=== PATIENT | female | born 1970 | race Two or more races ===

== ENCOUNTER → 2020-09-06 11:25 | Outpatient (BNVA) | payer OTHER, SELFPAY | PROVIDERS: PCP Internal Medicine; Visit Provider Surgery | DX: K64.4 Residual hemorrhoidal skin tags (principal); K64.8 Other hemorrhoids | CPT/HCPCS: 46600; 99202 ==

== ENCOUNTER 2020-10-06 08:28 | Day surgery (SDC) | payer OTHER, SELFPAY ==
[2020-09-29 15:40] VITALS: BMI 29.0
--- NOTE | 2020-10-05 11:49 | P.CONAN_ITS ---
Documented by User: Jennifer Meng 10/05/20 11:50 HPI - Anesthesia Eval Consult details Narrative: 50yo F for Hemorrhoidectomy,EUA PMFSH Past Medical History Medical History Anxiety Depression GERD (gastroesophageal reflux disease) Hypertension Internal and external hemorrhoids without complication Family History Family History Paternal Aunt History of breast cancer Maternal Aunt History of breast cancer Surgical History Surgical History History of endometrial ablation History of esophagogastroduodenoscopy (EGD) Hx of cholecystectomy Social History Social History Alcohol intake: current Alcohol intake frequency: holidays/special occasions only Smoking Status: Never smoker Use of substances other than those prescribed or required for medical reasons: No Have you been hit, kicked, punched, or otherwise hurt by someone within the past year? If so, by whom?: No Advance Directives: No Advance Directives Information Provided: No Advance Directives on File: No Recently lost weight without trying: No Meds Allergies Allergy/AdvReac Type Severity Reaction Status Date / Time seasonal Allergies Allergy Wheezing Uncoded 09/29/20 16:29 Home Medications Medication Instructions Recorded Confirmed Type albuterol sulfate 90 mcg/actuation 1 puff INHALATION Q4-6H PRN 09/06/20 09/29/20 History aerosol inhaler chlorthalidone 25 mg tablet 25 mg PO DAILY 09/06/20 09/29/20 History fluticasone propionate 50 2 spray INTRANASAL DAILY 09/06/20 09/29/20 History mcg/actuation nasal spray,suspension hydroxyzine pamoate 25 mg capsule 25 mg PO BID PRN 09/06/20 09/29/20 History ketotifen fumarate 0.025 % (0.035 1 drp OPHTHALMIC (EYE) ONCE PRN ml 09/06/20 09/29/20 History %) eye drops loratadine 10 mg tablet 10 mg PO DAILY 09/06/20 09/29/20 History lorazepam 0.5 mg tablet 0.5 mg PO DAILY PRN 09/06/20 09/29/20 History losartan 25 mg tablet 25 mg PO DAILY 09/06/20 09/29/20 History prazosin 1 mg capsule 1 mg PO DAILY 09/06/20 09/29/20 History sertraline 100 mg tablet 150 mg PO QAM 09/06/20 09/29/20 History trazodone 50 mg tablet 25 mg PO BEDTIME PRN 09/06/20 09/29/20 History Exam Exam Date and Time: October 05, 2020 1149 Height,Weight and Vital Signs: Height 5 ft 4 in Weight 76.657 kg Pertinent Lab Results Pertinent Lab Results: Laboratory Tests 04/08/20 04/08/20 09:58 09:58 WBC 7.0 Hgb 13.0 Hct 38.8 Plt Count 273 Sodium 140 Potassium 3.8 Chloride 104 BUN 9 Creatinine 0.80 Assessment and Plan Assessment Anesthesia Assessment: Chart Reviewed Documented by User: Alejandrina Perry 10/06/20 09:15 [facility] Past Medical History Medical History Anxiety Depression GERD (gastroesophageal reflux disease) Hypertension Internal and external hemorrhoids without complication Family History Family History Paternal Aunt History of breast cancer Maternal Aunt History of breast cancer Family history of problems with anesthesia: No Surgical History Surgical History History of endometrial ablation History of esophagogastroduodenoscopy (EGD) Hx of cholecystectomy History of Problems with Anesthesia: No Social History Social History Alcohol intake: current Alcohol intake frequency: holidays/special occasions only Smoking Status: Never smoker Use of substances other than those prescribed or required for medical reasons: No Have you been hit, kicked, punched, or otherwise hurt by someone within the past year? If so, by whom?: No Advance Directives: No Advance Directives Information Provided: No Advance Directives on File: No Recently lost weight without trying: No Meds Allergies Allergy/AdvReac Type Severity Reaction Status Date / Time seasonal Allergies Allergy Wheezing Uncoded 09/29/20 16:29 Home Medications Medication Instructions Recorded Confirmed Type albuterol sulfate 90 mcg/actuation 1 puff INHALATION Q4-6H PRN 09/06/20 09/29/20 History aerosol inhaler chlorthalidone 25 mg tablet 25 mg PO DAILY 09/06/20 09/29/20 History fluticasone propionate 50 2 spray INTRANASAL DAILY 09/06/20 09/29/20 History mcg/actuation nasal spray,suspension hydroxyzine pamoate 25 mg capsule 25 mg PO BID PRN 09/06/20 09/29/20 History ketotifen fumarate 0.025 % (0.035 1 drp OPHTHALMIC (EYE) ONCE PRN ml 09/06/20 09/29/20 History %) eye drops loratadine 10 mg tablet 10 mg PO DAILY 09/06/20 09/29/20 History lorazepam 0.5 mg tablet 0.5 mg PO DAILY PRN 09/06/20 09/29/20 History losartan 25 mg tablet 25 mg PO DAILY 09/06/20 09/29/20 History prazosin 1 mg capsule 1 mg PO DAILY 09/06/20 09/29/20 History sertraline 100 mg tablet 150 mg PO QAM 09/06/20 09/29/20 History trazodone 50 mg tablet 25 mg PO BEDTIME PRN 09/06/20 09/29/20 History Exam Height,Weight and Vital Signs: Vital Signs Temp Pulse Resp BP Pulse Ox 10/06/20 08:46 97 F 95 18 140/79 H 97 Airway Mallampati Class: II TM Dist: >3cm Neck ROM: Full Heart: RRR Lungs: CTAB Assessment and Plan Assessment Anesthesia Assessment: Anesthesia Plan Discussed and Chart Reviewed Final Anesthetic Review NPO: Yes ASA Class: II Final Preanesthetic Review: No Changes in Pt Med Stat, Meds/Allgs Chart Reviewed, Consent Obtained/Reviewed and Anes Risks/Benef Reviewed Patient Risk: Low Procedure Risk: Low Assessment/Block/Sedation in SS: Assess/Block/Sedation-SS Anesthetic Plan Anesthetic Plan: GA Disposition: Standard PACU
[2020-10-06] VITALS (7 sets, daily range): BP systolic 133–143; BP diastolic 68–79; PULSE 70–95; RESP 12–18; TEMP 36.1–36.9; O2SAT 97–100
[2020-10-06] MEDS: Lactated Ringers 1,000 ML 100 ML IVCONT (09:00)
--- NOTE | 2020-10-06 09:04 | MHC.SHP ---
Pre-Procedural Eval Section B Chief Complaint: Internal and external hemorrhoids w/o complication Details of Present Illness: for hemorrhoidectomy today - has difficulty with hygiene Relevant Family History (Specify if Yes): No Relevant Social History: None Present Medications: see Short Stay Collaborative assessment Medical History: Significant History (depression, HTN) History of Previous Operations: No relevant previous surgery Allergies: Allergies Allergy/AdvReac Type Severity Reaction Status Date / Time seasonal Allergies Allergy Wheezing Uncoded 09/29/20 16:29 Review of Systems Sugical H&P ROS: Negative: Constitution, Cardiovascular, Respiratory, Neurological, Psychiatric, Hem-Onc, Allergic/Immunologic, Gastrointestinal, Genitourinary, Musculoskeletal, Integumentary, Endocrine and Eyes/Ears/Nose/Throat Exam Surgical H&P Exam: Normal: HEENT, Normal: Heart, Normal: Lungs, Normal: Extremities, Normal: Abdomen, Normal: Skin and Normal: Neurological Plan Diagnosis/Plan: Unchanged I have reviewed the history and physical and performed a pertinent physical examination on my patient. No changes have occurred unless specified.
--- NOTE | 2020-10-06 10:23 | W.PM.OPN ---
Operative Note Operative Note Date of Service: 10/06/20 Narrative: PROCEDURE: Exam under anesthesia, hemorrhoidectomy x 2 PREOP DX: external hemorrhoids POSTOP DX: same SURGEON: Antoine Rudd M.D. The patient is a 50F with external hemorrhoids, who wanted to proceed with hemorrhoidectomy in view of her problems with perianal hygiene secondary to her hemorrhoids. She understood the technique of hemorrhoidectomy, She was aware of the risks, benefits and alternatives and had given consent. She was brought to the OR and placed in prone jacknife position under general anesthesia via ET tube. The buttocks were retracted with wide tape laterally. The perianal area was prepped and draped in the usual sterile fashion. Examination of the anal orifice revealed external hemorrhoids, left anterior and posteriorly. The Jose-Molina retractor was inserted and a thorough exam of the anal canal was done. There were no internal hemorrhoids seen that were bulky. I proceeded to grasp the external hemorrhoidal column on h anterior aspect using Watters graspers. I made an incision around this column using a blade 15. I excised this column above the sphincters along this incision using Metzenbaum scissors. I closed the incision with a running chromic 3-0 stitch. Additional hemostatic figure of 8 sutures were applied. The procedure was duplicated on the hemorrhoidal column posteriorly. This was excised in the same fasion, and closed with chromic 3-0 sutures as well.Both of these hemorrhoids appear to be chronically sclerosed. Additional figure of 8 sutures were applied for hemostasis. Once hemostasis was ensured, I infiltrated the perianal area with Marcaine .5% for postop analgesia. The patient toelrated the procedure well. Initial and final count of sponges and itrsuments were correct. EBL was 5 cc. The patient was extubated in the OR and transferred to the PACU with stable vital signs.
[2020-10-06] MEDS: Acetaminophen 325 MG TABLET 650 MG PO (11:05)
[2020-10-06] MEDS: Ketorolac Tromethamine 15 MG/ML VIAL IVPUSH (11:06)
== END 2020-10-06 11:36 | disposition home or self-care (01) ==
PROVIDERS: PCP Internal Medicine; Visit Provider Surgery
PROC: (CPT 46250; principal; 2020-10-06 09:50)
DX: K64.8 Other hemorrhoids (principal); K64.4 Residual hemorrhoidal skin tags; I10 Essential (primary) hypertension; K21.9 Gastro-esophageal reflux disease without esophagitis; F32.9 Major depressive disorder, single episode, unspecified; Z79.899 Other long term (current) drug therapy; Z90.49 Acquired absence of other specified parts of digestive tract
CPT/HCPCS: 46250; 88304; J1100; J1170; J1885; J2250; J2405; J3010

== ENCOUNTER → 2020-10-19 10:50 | Outpatient (BNVA) | payer OTHER, SELFPAY | PROVIDERS: PCP Internal Medicine; Visit Provider Surgery | DX: K64.4 Residual hemorrhoidal skin tags (principal); K64.8 Other hemorrhoids | CPT/HCPCS: 99212 ==

== ENCOUNTER 2021-09-03 14:40 | Outpatient (REF) | payer OTHER, SELFPAY ==
--- NOTE | ~2021-09-03 | MM_ITS ---
EXAMINATION: MM SCREENING DIGITAL BREAST TOMOSYNTHESIS, BILATERAL CLINICAL INFORMATION: Screening. Asymptomatic. Prior reduction mammoplasty 11/17/2017. The lifetime risk of breast cancer based on the Tyrer-Cuzick Model is 10%. COMPARISON: Mammography: 06/23/2019, 06/10/2018, 01/12/2018, 04/01/2017, 03/26/2017 TECHNIQUE: Digital breast tomosynthesis is performed in both the craniocaudal and mediolateral oblique views along with computer-aided detection (CAD). Synthesized 2D images are generated from the tomosynthesis. Additional exaggerated left CC view is provided. FINDINGS: There are scattered areas of fibroglandular density (ACR BI-RADS breast composition Category b). There is minor bilateral scarring consistent with the reduction mammoplasty. Neither breast shows interval mass or architectural abnormality or developing density. There are no abnormal calcifications. No significant changes prior exam. MM/MM tomosynthesis screening BI IMPRESSION: No mammographic evidence of malignancy. ASSESSMENT: BI-RADS 2: Benign RECOMMENDATION: Routine annual mammography screening. This patient's information was entered into a reminder system with a target due date for their next mammogram.
== END 2021-09-03 14:41 | disposition home or self-care (01) ==
LOC: HO.MAMMO 14:40
PROVIDERS: Visit Provider Internal Medicine
DX: Z12.31 Encounter for screening mammogram for malignant neoplasm of breast (principal)
CPT/HCPCS: 77063; 77067

== ENCOUNTER 2021-10-25 13:06 | Outpatient (REF) | payer OTHER, SELFPAY ==
--- NOTE | ~2021-10-25 | US_ITS ---
EXAMINATION: US PELVIS, TRANSABDOMINAL AND TRANSVAGINAL CLINICAL INFORMATION: Postmenopausal bleeding COMPARISON: None. TECHNIQUE: Transabdominal transvaginal FINDINGS: Uterus is 7.1 x 3.5 x 3.7 cm. Anteverted. Anteflexed. Endometrial canal is not adequately defined in the midportion. Proximally measures 4 mm. There is shadowing in the midportion. Distally measures 5 mm. The sales route driver helper identifies a small fibroid anteriorly measuring 1.0 x 0.8 x 0.6 cm. Myometrial. The right ovary is 2.3 x 1.3 x 1.5 cm. Volume 2 mL. The left ovary is not seen. Uterine echotexture is otherwise heterogeneous. US/US pelvic and transvaginal IMPRESSION: 1. The entire endometrial canal is not adequately visualized. There is shadowing in the midportion which obscures visualization. Proximally the canal measures 4 mm and distally measuring 5 mm. The shadowing could be due to calcifications versus other. Consider MR for full evaluation if clinically indicated. 2. Otherwise the right ovary is within normal limits. Left ovary is not seen. No free fluid or obvious adnexal mass.
== END 2021-10-25 13:07 | disposition home or self-care (01) ==
LOC: HO.US 13:06
PROVIDERS: Visit Provider Advanced Practice Midwife
DX: N95.0 Postmenopausal bleeding (principal)
CPT/HCPCS: 76830; 76856

== ENCOUNTER 2022-01-14 16:12 | Outpatient (REF) | payer OTHER, SELFPAY ==
--- NOTE | ~2022-01-14 | XR_ITS ---
EXAMINATION: XR CHEST CLINICAL INFORMATION: Preprocedure COMPARISON: Previous chest x-ray April 2007 TECHNIQUE: 2 views of the chest were obtained. FINDINGS: No significant abnormality is noted involving the heart, lungs, mediastinum, bony thorax or soft tissues. XR/XR chest 2V IMPRESSION: Unremarkable examination.
== END 2022-01-14 16:13 | disposition home or self-care (01) ==
LOC: HO.XRAY 16:12
PROVIDERS: PCP Internal Medicine; Visit Provider Internal Medicine
DX: Z01.818 Encounter for other preprocedural examination (principal)
CPT/HCPCS: 71046

== ENCOUNTER 2023-08-19 13:25 | Outpatient (REF) | payer OTHER, SELFPAY ==
--- NOTE | ~2023-08-19 | MM_ITS ---
EXAMINATION: MM SCREENING DIGITAL BREAST TOMOSYNTHESIS, BILATERAL CLINICAL INFORMATION: Screening. Asymptomatic. The patient is status post bilateral breast reduction. COMPARISON: Mammography: This study is compared with prior exams dating back to 2017. TECHNIQUE: Digital breast tomosynthesis is performed in both the craniocaudal and mediolateral oblique views along with computer-aided detection (CAD). Synthesized 2D images are generated from the tomosynthesis. FINDINGS: There are scattered areas of fibroglandular density (ACR BI-RADS breast composition Category b). There are no significant masses, abnormal calcifications, or other abnormalities. There are post reduction changes present in each breast. MM/MM tomosynthesis screening BI IMPRESSION: No mammographic evidence of malignancy. ASSESSMENT: BI-RADS BI-RADS 2 - Benign Findings RECOMMENDATION: Routine annual mammography screening. 1 year F/U This examination should not preclude the clinical evaluation of a suspicious palpable abnormality. This patient's information was entered into a reminder system with a target due date for their next mammogram.
== END 2023-08-19 13:26 | disposition home or self-care (01) ==
LOC: HO.MAMMO 13:25
PROVIDERS: PCP Internal Medicine; Visit Provider Internal Medicine
DX: Z12.31 Encounter for screening mammogram for malignant neoplasm of breast (principal)
CPT/HCPCS: 77063; 77067

== ENCOUNTER → 2023-08-19 13:45 | Outpatient (BNV) | payer OTHER, SELFPAY | PROVIDERS: PCP Internal Medicine; Visit Provider Radiology Diagnostic Radiology | DX: Z12.31 Encounter for screening mammogram for malignant neoplasm of breast (principal) | CPT/HCPCS: 77063; 77067 ==

== ENCOUNTER 2023-10-06 11:40 | Outpatient (REF) | payer OTHER, SELFPAY ==
[2023-10-06 13:10] LABS: MANUAL DIFF FLAG NO
[2023-10-06 13:21] LABS: Basophils Absolute Auto 0.1 X10*3/uL (0.0-0.2); Basophils Percent Auto 1.2 % (0-2); Eosinophils Absolute Auto 0.2 X10*3/uL (0.0-0.4); Eosinophils Percent Auto 2.2 % (0-4); Hematocrit 41.1 % (37.0-47.0); Hemoglobin 14.1 g/dl (12.0-16.0); Imm Gran Abs Auto 0.01 X10*3/uL (0.00-0.03); Imm Gran Pct Auto 0.1 % (0.0-0.4); Lymphocytes Absolute Auto 2.6 X10*3/uL (1.2-4.9); Lymphocytes Percent Auto 38.6 % (20-40); Mean Corpuscular HGB Conc 34.3 g/dl (31.0-35.0); Mean Corpuscular Hemoglobin 29.1 pg (27.0-33.0); Mean Corpuscular Volume 84.7 fL (80.0-98.0); Mean Platelet Volume 10.8 fL (9.4-12.3); Monocytes Absolute Auto 0.5 X10*3/uL (0.1-1.2); Monocytes Percent Auto 7.5 % (2-11); Neutrophils Absolute Auto 3.4 x10*3/uL (2.0-8.3); Neutrophils Percent Auto 50.4 % (45-73); Platelet Count 323 X10*3/uL (160-400); Red Blood Count 4.85 X10*6/uL (4.20-5.50); Red Cell Distribution Width 12.4 % (11.0-16.0); White Blood Count 6.8 X10*3/uL (4.8-10.8)
[2023-10-06 14:11] LABS: Anion Gap 15 (12-20); Blood Urea Nitrogen 15 mg/dL (9-16); Calcium 10.5 mg/dL (8.4-10.2); Carbon Dioxide 28 mmol/L (22-29); Chloride 103 mmol/L (96-108); Estimated Glomerular Filt Rate > 60; Glucose Random 102 mg/dL (60-115); Potassium 3.8 mmol/L (3.3-5.1); Sodium 142 mmol/L (135-145)
[2023-10-06 14:21] LABS: TSH reflex Free T4 2.02 uIU/mL (0.32-4.0); Vitamin D 25-OH Total 49.7 ng/mL (>30)
[2023-10-07 05:47] LABS: HIV AB/AG Nonreactive (Nonreactive); HIV Num 1 0.05 S/CO (0.00-0.99); ~HepC Num1 0.06 S/CO (0.00-0.79); ~Hepatitis C Antibody Nonreactive (Nonreactive)
== END 2023-10-06 11:41 | disposition home or self-care (01) ==
LOC: HO.HHCL 11:40
PROVIDERS: Visit Provider Internal Medicine
DX: Z00.00 Encounter for general adult medical examination without abnormal findings (principal); Z20.2 Contact with and (suspected) exposure to infections with a predominantly sexual mode of transmission
CPT/HCPCS: 36415; 80048; 82306; 84443; 85025; 86803; 87389

== ENCOUNTER 2023-11-01 09:14 | Outpatient (REF) | payer OTHER, SELFPAY ==
[2023-11-01 10:15] LABS: Alanine Aminotransferase 50 U/L (0-31); Albumin Level 4.5 g/dL (3.5-5.0); Alkaline Phosphatase 49 U/L (39-117); Aspartate Amino Transferase 28 U/L (5-31); Bilirubin Direct 0.2 mg/dL (0.0-0.5); Bilirubin Total 0.4 mg/dL (0.0-1.0); Cholesterol 197 mg/dL (<200); HDL Cholesterol 53 mg/dL (>40); LDL Cholesterol Calculated 112 mg/dL (<100); Total Protein 7.6 g/dL (6.5-8.0); Triglycerides 162 mg/dL (<150)
== END 2023-11-01 09:15 | disposition home or self-care (01) ==
LOC: HO.LAB 09:14
PROVIDERS: PCP Internal Medicine; Visit Provider Internal Medicine
DX: Z00.00 Encounter for general adult medical examination without abnormal findings (principal); Z13.6 Encounter for screening for cardiovascular disorders
CPT/HCPCS: 36415; 80061; 80076

== ENCOUNTER 2024-04-15 11:19 | Outpatient (REF) | payer OTHER, SELFPAY ==
[2024-04-15 13:18] LABS: MANUAL DIFF FLAG NO
[2024-04-15 13:30] LABS: Basophils Absolute Auto 0.1 X10*3/uL (0.0-0.2); Basophils Percent Auto 0.9 % (0-2); Eosinophils Absolute Auto 0.1 X10*3/uL (0.0-0.4); Eosinophils Percent Auto 1.6 % (0-4); Hematocrit 37.3 % (37.0-47.0); Hemoglobin 12.6 g/dl (12.0-16.0); Imm Gran Abs Auto 0.02 X10*3/uL (0.00-0.03); Imm Gran Pct Auto 0.3 % (0.0-0.4); Lymphocytes Absolute Auto 2.8 X10*3/uL (1.2-4.9); Lymphocytes Percent Auto 43.5 % (20-40); Mean Corpuscular HGB Conc 33.8 g/dl (31.0-35.0); Mean Corpuscular Volume 85.9 fL (80.0-98.0); Mean Platelet Volume 11.4 fL (9.4-12.3); Monocytes Absolute Auto 0.6 X10*3/uL (0.1-1.2); Monocytes Percent Auto 9.8 % (2-11); Neutrophils Absolute Auto 2.8 x10*3/uL (2.0-8.3); Neutrophils Percent Auto 43.9 % (45-73); Platelet Count 307 X10*3/uL (160-400); Red Blood Count 4.34 X10*6/uL (4.20-5.50); Red Cell Distribution Width 12.4 % (11.0-16.0); White Blood Count 6.3 X10*3/uL (4.8-10.8)
[2024-04-15 13:58] LABS: Anion Gap 12 (12-20); Blood Urea Nitrogen 18 mg/dL (9-16); Calcium 10.3 mg/dL (8.4-10.2); Carbon Dioxide 28 mmol/L (22-29); Chloride 106 mmol/L (96-108); Estimated Glomerular Filt Rate > 60; Glucose Random 96 mg/dL (60-115); Sodium 142 mmol/L (135-145)
[2024-04-15 14:02] LABS: TSH reflex Free T4 1.14 uIU/mL (0.32-4.0)
== END 2024-04-15 11:20 | disposition home or self-care (01) ==
LOC: HO.HHCL 11:19
PROVIDERS: Visit Provider Internal Medicine
DX: R73.03 Prediabetes (principal)
CPT/HCPCS: 36415; 80048; 84443; 85025

== ENCOUNTER 2024-09-17 10:19 | Outpatient (REF) | payer MEDICARE, OTHER, SELFPAY | END 2024-09-17 10:20 | disposition home or self-care (01) | LOC: HO.MAMMO 10:19 | PROVIDERS: PCP Internal Medicine; Visit Provider Internal Medicine | DX: Z12.31 Encounter for screening mammogram for malignant neoplasm of breast (principal) | CPT/HCPCS: 77063; 77067 ==

== ENCOUNTER → 2024-09-17 10:45 | Outpatient (BNV) | payer MEDICARE, OTHER, SELFPAY | PROVIDERS: PCP Internal Medicine; Visit Provider Internal Medicine | DX: Z12.31 Encounter for screening mammogram for malignant neoplasm of breast (principal) | CPT/HCPCS: 77063; 77067 ==

== ENCOUNTER 2024-10-18 10:23 | Outpatient (REF) | payer MEDICARE, OTHER, SELFPAY ==
[2024-10-18 11:10] LABS: MANUAL DIFF FLAG NO
[2024-10-18 11:14] LABS: Basophils Absolute Auto 0.1 X10*3/uL (0.0-0.2); Eosinophils Absolute Auto 0.2 X10*3/uL (0.0-0.4); Eosinophils Percent Auto 2.3 % (0-4); Hematocrit 39.1 % (37.0-47.0); Hemoglobin 13.2 g/dl (12.0-16.0); Imm Gran Abs Auto 0.02 X10*3/uL (0.00-0.03); Imm Gran Pct Auto 0.3 % (0.0-0.4); Lymphocytes Absolute Auto 2.6 X10*3/uL (1.2-4.9); Lymphocytes Percent Auto 36.3 % (20-40); Mean Corpuscular HGB Conc 33.8 g/dl (31.0-35.0); Mean Corpuscular Hemoglobin 28.2 pg (27.0-33.0); Mean Corpuscular Volume 83.5 fL (80.0-98.0); Mean Platelet Volume 10.5 fL (9.4-12.3); Monocytes Absolute Auto 0.6 X10*3/uL (0.1-1.2); Monocytes Percent Auto 8.5 % (2-11); Neutrophils Absolute Auto 3.6 x10*3/uL (2.0-8.3); Neutrophils Percent Auto 51.6 % (45-73); Platelet Count 293 X10*3/uL (160-400); Red Blood Count 4.68 X10*6/uL (4.20-5.50); Red Cell Distribution Width 12.3 % (11.0-16.0); White Blood Count 7.1 X10*3/uL (4.8-10.8)
--- OUTSIDE RECORDS SUMMARY | 2024-10-18 11:15 | XMS_ITS | Encounter Summary ---
Author Organization [employer] Address [address] [place] [address] Care Team Providers Care Ruby On Rails Engineer Name Role Phone Nancy Willis MD Primary Care Provide r Reason for Visit * Reason Onset Date Comments Referral 07/20/2024 Encounter Details Date Type Department Care Team ([facility] st Contact Info) Description 07/20/2024 Telephone [facility] [address] [place], [place] [phone] Nancy Willis MD [address] [place], [place] [phone] Referral Social History Tobacco Use Types Packs/Day Years Used Date Smoking Tobacco: Never Passive Smoke Exposure: Never Smokeless Tobacco: Never Alcohol Use Standard Drinks/Week Comments Never 0 (1 standard drink = 0.6 oz pur e alcohol) Alcohol Answer Date Recorded Frequency of Alcohol Consumption Not on file 05/03/2024 Average Number of Drinks Not on file 024 Frequency of Binge Drinking Not on file 04/09 Score 0 05/03/2024 Depression Answer Date Recorded Patient Health Questionnaire-9 Score 0 10/06/2023 Patient Health Questionnaire-9 Score 0 10/06/2023 Last PHQ-9: Questionnaire Data Not on file 0 10/06/2023 Housing Stability Answer Date Recorded What is your housing situation today? I have wu chairez 07/07/[address] you li ve. Do you have problems with any of the following? None of the above 07/07/2023 Food Insecurity Answer Date Recorded Within the past 12 months, y ou worried that your food would run out before you got money to buy more: Never True 07/07/2023 Within the past 12 months,th e food you bought just didn't last and you didn't have enough money to get more: Never True Transportation Answer Date Recorded In the past 12 months, has l ack of transportation kept you from medical appts, meetings, work or from getting things needed for daily living? No 07/07/2023 Utilities Answer Date Recorded In the past 12 months, has t he electric, gas, oil or water company threatened to shut off services in your home? No 07/07/2023 Depression Answer Date Recorded Patient Health Questionnaire-2 Score 0 10/06/2023 Comments Unknown Sex and Gender Information Value Date Recorded Sex Assigned at Female 07/08/2022 10:15 AM EDT Legal Sex Female 10:15 AM EDT Gender Identity Female 07/08/2022 10:15 AM EDT Sexual Orientation Straight 07/08/2022 10 :15 AM EDT documented as of this encounter Miscellaneous Notes * Telephone Encounter - Efe Moreno - 07/21/2024 8:37 AM EST Error. * Telephone Encounter - Jacey Yang - 07/20/2024 10:18 AM EST Tc from pt requesting a new referral due to pt switching insurance.Pt requesting referral to be faxed to Facility ( [facility] ) with Dr. Yue Gil , pt indicates she has an appointment tomorrow 07/21/2024 if theres any possibility to be faxed over today. FAX- [phone] documented in this encounter Plan of Treatment Not on file documented as of this encounter Visit Diagnoses Not on filedocumented in this encounter Additional Health Concerns Assessment Noted Time PHQ-9 Depression Total Score: 0 10/06/19 10:40 AM EST documented as of this encounter Care Teams Ruby On Rails Engineer Relationship Specialty Start Date End Date Nancy Willis MD [address] [place] [address] PCP - General Family Medicine 02/24/20 documented as of this encounter
--- OUTSIDE RECORDS SUMMARY | 2024-10-18 11:15 | XMS_ITS | Encounter Summary ---
Author Organization [employer] Address [address] [place] [address] Care Team Providers Care Visual Merchandising Associate Name Role Phone Nancy Willis MD Primary Care Provide r Reason for Visit * Reason Onset Date Comments Med Refill 08/19/2024 Encounter Details Date Type Department Care Team ([facility] st Contact Info) Description 08/19/2024 Telephone [facility] [address] [place] [address] Nancy Willis MD [address] [place] [address] Med Refill Social History Tobacco Use Types Packs/Day Years [...] encounter Miscellaneous Notes * Telephone Encounter - Kiesha Elaine LPN - 08/19/2024 10:09 AM EST Please review request below * Telephone Encounter - Mika Layne - 08/19/2024 9:47 AM EST TC from pt requesting medication refill. Medications needing refill : benzonatate (Tessalon Perles) 100 MG capsule To be sent to: [facility] Mail Delivery - [facility] [address] documented in this encounter Plan of Treatment Not on file documented as of this encounter Visit Diagnoses Not on filedocumented in this encounter Additional Health Concerns Assessment Noted Time PHQ-9 Depression Total Score: 0 10/06/19 24 10:40 AM EST documented as of this encounter Care Teams Visual Merchandising Associate Relationship Specialty Start Date End Date Nancy Willis MD [address] [place] [address] PCP - General Family Medicine 02/24/20 documented as of this encounter
--- OUTSIDE RECORDS SUMMARY | 2024-10-18 11:15 | XMS_ITS | Encounter Summary ---
Author Organization [employer] Address [address] [place] [address] Care Team Providers Care Quill Cleaning Machine Operator Name Role Phone Nancy Willis MD Primary Care Provide r Reason for Visit * Reason Comments Med Refill Encounter Details Date Type Department Care Team ([facility] st Contact Info) Description 07/06/2024 Refill [facility] [address] [place] [address] Nancy Willis MD [address] [place], [place] [phone] Prediabetes Social History Tobacco Use Types Packs/Day Years [...] AM EDT documented as of this encounter Plan of Treatment Not on file documented as of this encounter Visit Diagnoses Diagnosis Prediabetes Other abnormal glucose documented in this encounter Additional Health Concerns Assessment Noted Time PHQ-9 Depression Total Score: 0 10/06/19 24 10:40 AM EST documented as of this encounter Care Teams Quill Cleaning Machine Operator Relationship Specialty Start Date End Date Nancy Willis MD [address] [place] [address] PCP - General Family Medicine 02/24/20 documented as of this encounter
--- OUTSIDE RECORDS SUMMARY | 2024-10-18 11:15 | XMS_ITS | Clinical Summary ---
Author Organization [employer] Address [address] [place] [address] Care Team Providers Care Workers Compensation Paralegal Name Role Phone Nancy Willis MD Primary Care Provide r Allergies Active Allergy Reactions Criticality Noted Date Comments Luis Alberto Inhibitors Cough Lisinopril 11/15/2022 Morphine 05/03/2024 Medications * This document contains information received from the source organization and may not represent a complete record from that organization. meclizine (Antivert) 25 MG tablet TAKE 1 TABLET BY MOUTH TWICE A DAY IF NEEDED FOR VERTIGO 30 tablet 08/27/20 23 Active Alcohol Swabs 70 % padsIndications:P rediabetes Use to test blood sugar one time daily 100 each 3 12/10/19 24 Active FREESTYLE LITE test stripIndications: Prediabetes Use to test blood sugar one time daily 50 each 11 12/10/19 24 2024 Active Blood Glucose Monitoring Suppl (FreeStyle [place] Lite) w/Device kitIndications:Pr ediabetes Use to test blood sugar one time daily 1 kit 12/10/19 24 Active TRUEplus Lancets 33G miscIndications:P rediabetes USE TO TEST BLOOD SUGAR ONCE A DAY 100 each 11 12/11/19 24 Active albuterol 108 (90 Base) MCG/ACT inhalerIndication s:Uncomplicated asthma, unspecified asthma severity, unspecified whether persistent INHALE 2 PUFFS BY MOUTH 4 TIMES EVERY DAY NEEDED FOR SHORTNESS OF BREATH 8.5 g 1 03/15/20 24 Active metFORMIN (Glucophage) 500 MG tabletIndications :Prediabetes TAKE 1 TABLET BY MOUTH WITH BREAKFAST AND EVENING MEALS 60 tablet 3 03/31/20 24 Active fenofibrate micronized (Lofibra) 134 MG capsuleIndication s:Mixed hyperlipidemia TAKE 1 CAPSULE BY MOUTH EVERY DAY WITH FOOD 90 capsule 3 04/08/20 24 Active loratadine (Claritin) 10 MG tabletIndications :Dermatitis Take 1 tablet (10 mg) by mouth in the morning. 90 tablet 1 05/03/20 24 Active chlorthalidone (Hygroton) 25 MG tablet TAKE 1 TABLET BY MOUTH EVERY DAY 90 tablet 1 06/28/20 24 Active cholecalciferol (D3 Super Strength) 50 MCG (1999) capsuleIndication s:Vitamin D deficiency TAKE 1 CAPSULE BY MOUTH EVERY DAY 90 capsule 08/10/20 24 Active Blood Glucose Monitoring Suppl (Accu-Chek Guide) w/Device kit Use to check BS as directed 1 kit 08/13/20 24 Active glucose blood (Accu-Chek Guide Test) test strip Use to check blood sugar once daily as instructed 100 each 12 08/13/20 24 2024 Active Accu-Chek Softclix Lancets lancets Use to check blood sugar once daily as instructed 100 each 12 08/13/20 24 2024 Active losartan (Cozaar) 100 MG tabletIndications :Essential hypertension TAKE 1 TABLET BY MOUTH EVERY DAY IN THE MORNING 90 tablet 3 09/28/19 25 Active phentermine 15 MG capsuleIndication s:Class 1 obesity due to excess calories with serious comorbidity and body mass index (BMI) of 32.0 to 32.9 in adult Take 1 capsule (15 mg) by mouth before breakfast. 30 capsule 10/18/19 25 2024 Active topiramate (Topamax) 25 MG tabletIndications :Class 1 obesity due to excess calories with serious comorbidity and body mass index (BMI) of 32.0 to 32.9 in adult Take 1 tablet (25 mg) by mouth at bedtime. 30 tablet 1 10/18/19 25 2025 Active losartan (Cozaar) 100 MG tabletIndications :Essential hypertension Take 1 tablet (100 mg) by mouth in the morning. 30 tablet 11 10/06/19 24 2024 Discontinued Active Problems Problem Noted Date Diagnosed Date Encounter for preventive care 10/18/2024 Class 1 obesity due to exces s calories with serious comorbidity and body mass index (BMI) of 32.0 to 32.9 in adult 10/18/2024 Leg edema 10/18/2024 Dermatitis 04/15/2024 Assessment & Plan (05/03/2024 4:54 PM EDT): F/u with dermatology Assessment & Plan (04/15/2024 11:19 AM EDT): Newly developed hyperkeratosis on lips, not going away, suggestive of dryness, but pt states she has been using lip balm/moisturizer with no good results. Plan: Derm evaluation Class 1 obesity with serious comorbidity and body mass index (BMI) of 31.0 to 31.9 in adult 11/03/2023 Cough in adult 10/24/2023 Assessment & Plan (10/24/2023 3:47 PM EST): -continue prednisone course as prescribed -increase fluid consumption -continue flonase two times daily -drink tea with honey and lemon -rest -rx for guaifenesin sent to pharmacy -come to walk in clinic for eval if symptoms worsen for no improvement in 1 week Prediabetes 10/06/2023 Assessment & Plan (05/03/2024 4:53 PM EDT): Today extensive discussion was done about life style modifications I advise healthy diet (low calorie) and cardiovascular exercise Assessment & Plan (04/15/2024 11:16 AM EDT): Pt recently started on Metformin for pre diabetes. Pt reporting not tolerating it well. C/o feeling fatigued and newly develop hyperkeratosis of lower lips. Both complaints do not seem characteristic of side effects from Metformin nevertheless will: STOP for the time being. I will also obtain a BMP, CBC and TSH to rule out any other etiologies of her symptoms. Pt agreeable with plan , already has upcoming appointment with PCP Assessment & Plan (11/03/2023 10:36 AM EST): Today extensive discussion was done about life style modifications I advise healthy diet (low calorie) and cardiovascular exercise I will start patient on metformin recent A1c is 6.0 Assessment & Plan (10/06/2023 4:01 PM EST): Today extensive discussion was done about life style modifications I advise healthy diet (low calorie) and cardiovascular exercise Vestibular disorder 10/06/2023 Assessment & Plan (10/06/2023 4:02 PM EST): Patient will be refer to PT Encounter for preventive health examination 09/09 Assessment & Plan (10/06/2023 4:02 PM EST): See HPI Mild intermittent asthma with acute exacerbation 12/10/2022 Assessment & Plan (01/03/2023 5:13 PM EDT): Albuterol inhaler 2 puffs every 4-6hrs Prednisone 40mg for 5 days tesselon cough drops Nebulizer machine will be prescribed patient ill benefit will try to avoid ED visits RTC 1 month for reassesment S/P bariatric surgery 12/10/2022 Assessment & Plan (12/10/2022 10:10 AM EDT): Patient reports his previous bariatric specialist move to [place] and she needs to be follow here around the area I will refer her to local bariatric specialist Weight gain 12/10/2022 Mixed hyperlipidemia 11/15/2022 Abnormal perimenopausal bleeding 11/04/2022 Essential hypertension 11/04/2022 Assessment & Plan (05/03/2024 4:53 PM EDT): ASCVD risk is low, I advsise: - Aerobic exercise to reduce BP. Initial goal of 30 min walk 3-5x/week. Increase as tolerated. - low-sodium diet (goal: <2g/day) and heart healthy diet such as DASH to reduce BP and prevent ASCVD. - Home BP monitoring 1-2 x day with goal of <140/90. - Seek immediate medical attention for chest pain, palpitations, SOB, syncope, or sudden changes in mental status. - Do not change or discontinue current prescriptions without first consulting health care provider Assessment & Plan (11/03/2023 10:35 AM EST): - Aerobic exercise to reduce BP. Initial goal of 30 min walk 3-5x/week. Increase as tolerated. - low-sodium diet (goal: <2g/day) and heart healthy diet such as DASH to reduce BP and prevent ASCVD. - Home BP monitoring 1-2 x day with goal of <140/90. - Seek immediate medical attention for chest pain, palpitations, SOB, syncope, or sudden changes in mental status. - Do not change or discontinue current prescriptions without first consulting health care provider Assessment & Plan (10/06/2023 4:03 PM EST): Maintenance: BMP: ordered today Lipid Panel: ordered today ASCVD Risk: Calculate pending updated labs -losartan was increase to 100mg daily - Aerobic exercise to reduce BP. Initial goal of 30 min walk 3-5x/week. Increase as tolerated. - low-sodium diet (goal: <2g/day) and heart healthy diet such as DASH to reduce BP and prevent ASCVD. - Home BP monitoring 1-2 x day with goal of <140/90. - Seek immediate medical attention for chest pain, palpitations, SOB, syncope, or sudden changes in mental status. - Do not change or discontinue current prescriptions without first consulting health care provider Assessment & Plan (12/10/2022 10:16 AM EDT): Maintenance: BMP: ordered today Lipid Panel: ordered today ASCVD Risk: Calculate pending updated labs - Aerobic exercise to reduce BP. Initial goal of 30 min walk 3-5x/week. Increase as tolerated. - low-sodium diet (goal: <2g/day) and heart healthy diet such as DASH to reduce BP and prevent ASCVD. - Home BP monitoring 1-2 x day with goal of <140/90. - Seek immediate medical attention for chest pain, palpitations, SOB, syncope, or sudden changes in mental status. - Do not change or discontinue current prescriptions without first consulting health care provider Hemorrhoids 11/04/2022 Urticaria 10/24/2022 Straining during bowel movements 10/24/2022 Seasonal allergies 10/24/2022 Right lower quadrant abdominal pain 10/24/2022 Skin lesion 10/24/2022 Polymenorrhea 10/24/2022 Obesity 04/15/2013 Galactorrhea not associated with childbirth 03/08 History of cholecystectomy 10/29/2012 Anxiety 05/29/2012 Hypertension 05/29/2012 Encounters Date Type Department Care Team Description 10/18/2024 9:15 AM EST Office Visit [address] [address] Nancy Willis MD Encounter for preventive care (Primary Dx); Class 1 obesity due to excess calories with serious comorbidity and body mass index (BMI) of 32.0 to 32.9 in adult; Prediabetes; Essential hypertension; Leg edema; Encounter for immunization 10/18/2024 Travel 10/15/2024 11:00 AM EST Office Visit [address] [address] Marisela Kern MD Cheilitis (Primary Dx); Post-inflammatory hyperpigmentation 10/15/2024 Travel 10/14/2024 Telephone [facility] [address] [place] [phone] Nancy Willis MD insurance 10/13/[address] [address] Arian Wells [place] Chart Prep 10/06/2024 Patient Outreach [address] [phone] Nnacy Willis MD Pre-visit Planning (SDOH screening negative and tobacco screening negative) 09/26/2024 Refill [facility] [address] [place] [phone] Nancy Willis MD Essential hypertension 09/17/2024 Orders Only [facility] [address] [place] [phone] Nancy Willis MD 08/19/[address] [address] Nancy Willis MD Med Refill 08/19/[address] [place] [address] Nancy Willis MD Appointment Request 08/13/2024 Refill [facility] [address] [place] [phone] Hillary Brown, RN 08/13/2024 Orders Only [facility] [address] [place] [phone] Nancy Willis MD Dermatitis (Primary Dx) 08/13/2024 Telephone [facility] [address] [place] [phone] Nancy Willis MD Nurse Triage 08/09/2024 Telephone [facility] [address] [place] [phone] Nancy Willis MD callback requested 08/09/2024 Refill [facility] [address] [place] [phone] Nancy Willis MD Vitamin D deficiency 07/30/2024 Telephone [facility] [address] [place] [phone] Nancy Willis MD Nurse Triage 07/21/2024 Telephone [facility] [address] [place] [phone] Nancy Willis MD Appointment Request 07/20/2024 Telephone [facility] [address] [place] [phone] Nancy Willis MD Referral from Last 3 Months Immunizations Name Administration Dates Next Due Hep B, adult 09/03/1999,04/10/1999,03/01/1999 Influenza injectable quadriv alent IIV4 with preservative 08/07/2017 Influenza injectable quadriv alent preservative free 10/06/2023,07/05/2021,08/27/2019 Influenza, IIV3, injectable 07/20/2014, 1 MMR 05/02/1998 Pfizer Covid-19 Vaccine 12+ 10/06/2023 Pfizer Covid-19 Vaccine 12+ Bivalent 08/29/2022 Pneumococcal Conjugate PCV 20 05/03/2024 TD (adult), 2 Lf tetanus tox oid, preservative free, adsorbed 03/02/2009 Tdap 10/18/2024,03/19/2013 Social History Tobacco Use Types Packs/Day Years Used Date Smoking Tobacco: Never Passive Smoke Exposure: Never Smokeless Tobacco: Never Tobacco Cessation:Counseling Given: Not Answered Alcohol Use Standard Drinks/Week Comments Never 0 [...] is your housing situation today? I have wusharri chairez 07/07/[address] you [...] Date Recorded Patient Health Questionnaire-2 Score 0 10/18/2024 Internet Access Answer Date Recorded Internet Access Q1 Yes 10/06/2024 Internet Access Q2 Not on file 10/06/2024 Comments No Sex and Gender Information Value Date Recorded Sex Assigned at Female 07/08/2022 10:15 AM EDT Legal Sex Female 10:15 AM EDT Gender Identity Female 07/08/2022 10:15 AM EDT Sexual Orientation Straight 07/08/2022 10 :15 AM EDT Last Filed Vital Signs Vital Sign Reading Time Taken Comments Blood Pressure 128/79 10/18/2024 9:05 AM EST Pulse 83 10/18/2024 9:05 AM EST Temperature 36.3 ??C (97.3 ??F) 10/18/2024 9:05 AM ES T Respiratory Rate 16 10/18/2024 9:05 AM EST Oxygen Saturation 100% 10/18/2024 9:05 AM EST Inhaled Oxygen Concentration - - Weight 85 kg (187 lb 6 oz) 10/18/2024 9:05 AM ES T Height 162.6 cm (5' 4 ) 10/18/2024 9:05 AM EST Body Mass Index 32.16 10/18/2024 9:05 AM EST Plan of Treatment Health Maintenance Due Date Last Done Comments CT Colonography 1968 FIT DNA/Cologuard 1968 FIT 1968 FOBT 1970 Sigmoidoscopy 1970 Zoster Vaccines (1 of 2) 2018 COVID-19 Vaccine ( season) 2024 10/06/2023, 08/29/2022, 07/12/2021, Additional history exists Influenza Vaccine (#1) 2024 , 07/05/2021, 08/27/2019, Additional history exists Pap Smear 07/05/2024 07/05/2021 Alcohol/Substance Use Screening 05/03/2025 05/03/2024 Diabetes: Hemoglobin A1C 05/03/2025 024, 10/06/2023, 12/16/2022, Additional history exists Mammogram 09/17/2025 09/17/2024, 08/08, 09/03/2021, Additional history exists SDOH Screening 10/06/2025 10/06/2024 Depression Screening 10/18/2025 10/18/2024, 10/06/19 24 Tobacco Screening 10/18/2025 10/18/2024 Cervical Cancer Screening 07/05/2026 HPV/Cotest 07/05/2026 07/05/2021 Colonoscopy 08/13/2026 08/13/2016 Colorectal Cancer Screening 08/13/2026 Lipid Panel 11/01/2028 11/01/2023, 04/, 03/23/2021 DTaP/Tdap/Td Vaccines (3 - Td or Tdap) 10/18/2034 10/18/2024, 03/19/2013, 03/02/2009 RSV Patients and Patients Aged 60 years or older (1 - 1-dose 75+ series) 2043 Hepatitis B Vaccines Completed 09/03/1999, 04/10/1999, 03/01/1999 HIV Screening Completed 10/06/2023, 01/14/2022 Hepatitis C Screening Completed 10/06/2023 Pneumococcal Vaccine: 50+ Years Completed 05/03/2024 HIB Vaccines Aged Out No longer eligi ble based on patient's age to complete this topic HPV Vaccines Aged Out No longer eligi ble based on patient's age to complete this topic Hepatitis A Vaccines Aged Out No long er eligible based on patient's age to complete this topic IPV Vaccines Aged Out No longer eligi ble based on patient's age to complete this topic Meningococcal Vaccine Aged Out No [place] eligible based on patient's age to complete this topic RSV under 20 months Aged Out No longe r eligible based on patient's age to complete this topic Rotavirus Vaccines Aged Out No longer eligible based on patient's age to complete this topic Procedures Procedure Name Priority Date/Time Associated Diagnosis Comments BI MAMMOGRAM SCREENING TOMOSYNTHESIS BILATERAL Routine 09/17/2024 10:45 AM EST POCT GLYCATED HEMOGLOBIN, TOTAL Routine 05/03/2024 2:23 PM EDT Prediabetes LIPID PANEL, STANDARD Routine 11/01/2023 9:23 AM EST Encounter for preventive health examination HEPATITIS C AB W/REFL TO HCV RNA, QN, PCR Routine 10/06/2023 11:42 AM EST Encounter for preventive health examination HIV 1/2 ANTIGEN/ANTIBODY, FOURTH GENERATION W/RFL Routine 10/06/2023 11:42 AM EST Encounter for preventive health examination THINPREP IMAGING PAP AND HPV MRNA E6/E7, WITH CT/NG, TRICHOMONAS Routine 07/05/2021 9:12 AM EDT HM COLONOSCOPY Routine 08/13/2016 from Last 3 Months or Most Recently Relevant to Health Maintenance Results * BI Mammogram Screening Tomosynthesis Bilateral (09/17/2024 10:45 AM EST) Anatomical Region Laterality Modality Breast Bilateral Mammography 09/17/2024 10:4 5 AM EST Narrative 09/24/2024 4:02 PM EST ? [facility] ? [address] ?[place], [place] [address] ? Mammography Report ? Signed ? Patient: JamieGissel ?MR#: [id number] ?? 30 ? : 1970 ?Acct:[id number] ? Age/Sex: 54 / F ?ADM Date: 09/17/24 ? Loc: HO.MAMMO ? Attending Dr: Nancy Bates MD ? Ordering Physician: Nancy Willis MD ?Results: ?? 2Benign Findings ? Date of Service: 09/17/24 ?Follow Up: 1 Year From Orig ?? inal Mammogram ? Procedure(s): MM tomosynthesis screening BI ?? Accession Number(s): [id number] ? cc: Nancy Willis MD ? EXAMINATION: ?? MM SCREENING DIGITAL BREAST TOMOSYNTHESIS, BILATERAL ? CLINICAL INFORMATION: ? Screening. Asymptomatic. ? COMPARISON: ?? Mammography: Comparison is made with available priors ? TECHNIQUE: ?? Digital breast mammography with tomosynthesis is performed in both the ?? craniocaudal and mediolateral oblique views along with computer-aided ?? detection (CAD). ? FINDINGS: ?? There are scattered areas of fibroglandular density (ACR BI-RADS breast ?? composition Category b). ?? Bilateral reduction mammoplasty. ?? There are no significant masses, abnormal calcifications, or other ?? abnormalities. ? MM/MM tomosynthesis screening BI ?? IMPRESSION: ?? No mammographic evidence of malignancy. ? ASSESSMENT: ? BI-RADS BI-RADS 2 - Benign Findings ? RECOMMENDATION: ?? Routine annual mammography screening. ? 1 year F/U ? This examination should not preclude the clinical evaluation of a ?? suspicious palpable abnormality. ? This patient's information was entered into a reminder system with a ?? target due date for their next mammogram. ? Electronically signed by: ??Joyce Schroeder DO ??09/24/2024 03:59 PM EST ?? RP ? Dictated By: ?Joyce Schroeder DO ? Signed By: ?<Electronically signed by Joyce Schroeder, DO in OV> ? 09/24/24 1559 ? DD/ 1045 ? TD/TT: 09/17/24 1110 ? Magnetic Resonance Technologist: ? Procedure Note Chani, Image - 09/24/2024 [facility] [facility] [address] [place] [address] Mammography Report Signed Patient: Man Ayala#: [id number] 30 : 1970Acct:[id number] Age/Sex: 54 / FADM Date: 09/17/24 Loc: [facility] Attending Dr: Nancy Bates MD Ordering Physician: Nancy Willisesults: 2Benign Findings Date of Service: 09/17/24Follow Up: 1 Year From Orig inal Mammogram Procedure(s): MM tomosynthesis screening BI Accession Number(s): [id number] cc: Nancy Willis MD EXAMINATION: MM SCREENING DIGITAL BREAST TOMOSYNTHESIS, BILATERAL CLINICAL INFORMATION: Screening. Asymptomatic. COMPARISON: Mammography: Comparison is made with available priors TECHNIQUE: Digital breast mammography with tomosynthesis is performed in both the craniocaudal and mediolateral oblique views along with computer-aided detection (CAD). FINDINGS: There are scattered areas of fibroglandular density (ACR BI-RADS breast composition Category b). Bilateral reduction mammoplasty. There are no significant masses, abnormal calcifications, or other abnormalities. MM/MM tomosynthesis screening BI IMPRESSION: No mammographic evidence of malignancy. ASSESSMENT: BI-RADS BI-RADS 2 - Benign Findings RECOMMENDATION: Routine annual mammography screening. 1 year F/U This examination should not preclude the clinical evaluation of a suspicious palpable abnormality. This patient's information was entered into a reminder system with a target due date for their next mammogram. Electronically signed by: Joyce Schroeder DO 09/24/2024 03:59 PM EST Dictated By: Joyce Schroeder DO Signed By: <Electronically signed by Joyce Schroeder DO in OV> 09/24/24 1559 DD/ 1045 TD/TT: 09/17/24 1110 Magnetic Resonance Technologist: Nancy Bates MD IMG BI PROCEDURES Harish joanna Result - Final * POCT HGB A1C (05/03/2024 2:23 PM EDT) Hemoglobin A1C 6.0 4.0 - 6.0 % QC Media Lot # [id number] Lot# Expiration Date [id number] Blood 05/03/2024 2:23 PM EDT Nancy Bates MD POINT OF CARE TEST ENTER/EDIT ORDERABLES Edited Result - Final * (ABNORMAL) Lipid Panel, Standard (11/01/2023 9:23 AM EST) Triglycerides 162(H) <150 mg/dL [facility] Comment:Desirable Triglyceri de: less than 150 mg/dLBorderline High Triglyceride 150-199 mg/dLHigh Triglyceride: 200-499 mg/dLVery High Triglyceride: greater than or equal to 5OO mg/dL Cholesterol 197 <200 mg/dL [facility] Comment:Desirable Cholestero l: less than 200 mg/dLBorderline High Cholesterol: 200-239 mg/dLHigh Cholesterol: greater than 239 mg/dL LDL Cholesterol Calculated 112(H) <100 mg/dL [facility] Comment:Desirable LDL: less than 100 mg/dLNear Optimal/Above Optimal LDL: 110- 129 mg/dLBorderline High LDL: 130-159 mg/dLHigh LDL: 160-189 mg/dLVery High LDL: greater than or equal to 190 mg/dL HDL Cholesterol 53 >40 mg/dL [facility] Comment:Desirable HDL: great er than 40 mg/dL Note: This HDL assay may give artificially low results in patients with liver disease. Blood Venous blood specimen / Unknown 11/01/2023 9:23 AM EST 11/01/2023 9:23 AM EST us Nancy Bates MD LAB BLOOD ORDERABLES Final Result Performing Organization Address [facility] Co de Phone Number [facility] [address] [place] [phone] * Hepatitis C Antibody with Reflex to HCV, RNA, Quantitative, Real-Time PCR (10/06/2023 11:42 AM EST) Hepatitis C Antibody Nonreactive Nonreactive [facility] Comment:Antibodies to HCV no t detected; does not exclude early acuteHCV infection. Blood Venous blood specimen / Unknown 10/06/2023 11:42 AM EST 10/06/2023 1:07 PM EST us Nancy Bates MD LAB BLOOD ORDERABLES Final Result Performing Organization Address City/[facility]/ZIP Co de Phone Number [facility] [address] [place] [phone] * HIV-1/2 Antigen and Antibodies, Fourth Generation, with Reflexes (10/06/2023 11:42 AM EST) Pathologist [facility] HIV AB/AG Nonreactive Nonreactive [facility] Comment:HIV-1 p24 Ag and/or HIV-1/HIV-2 Ab not detected.A test result that is nonreactive does not exclude thepossibility of exposure to or infection with HIV-1 and/orHIV-2. Nonreactive results in this assay for individualswith prior exposure to HIV-1 and/or HIV-2 may be due toantigen and antibody levels that are below the limit ofdetection of this assay.The [facility] HIV Ag/Ab Combo assay result andsupplemental assay results should be interpreted inconjunction with the patient's clinical presentation,history and other laboratory results. If the results areinconsistent with clinical evidence, additional testing issuggested to confirm the result. Blood Venous blood specimen / Unknown 10/06/2023 11:42 AM EST 10/06/2023 1:07 PM EST us Nancy Bates MD LAB BLOOD ORDERABLES Final Result [facility] [address] [place] [address] [phone] * THINPREP TIS PAP AND HPV mRNA E6/E7, CT/NG, TRICH (07/05/2021 9:12 AM EDT) Pathologist [facility] Chlamydia trachomatis RNA, TMA, Urogenital NOT DETECTED NOT DETECTED [facility] Clinical Information: None given [facility] COMMENT SEE COMMENT [facility] Comment: The analytical performance characteristics of this assay, when used to test SurePath(TM) specimens have been determined by [employer]. The modifications have not been cleared or approved by the FDA. This assay has been validated pursuant to the CLIA regulations and is used for clinical purposes. ?? For additional information, please refer to https://education.LibraryThing/faq/ZSD103 (This link is being provided for information/ educational purposes only.) ?? COMMENT SEE COMMENT [facility] Comment: EXPLANATORY NOTE: ? The Pap is a screening test for cervical cancer. It is ?? not a diagnostic test and is subject to false negative ?? and false positive results. It is most reliable when a ?? satisfactory sample, regularly obtained, is submitted ?? with relevant clinical findings and history, and when ?? the Pap result is evaluated along with historic and ?? current clinical information. ?? COMMENT: This Pap test has been evaluated with computer assisted technology. [facility] [employer] Technology Manager: SEE COMMENT [facility] Comment: KF, CT(ASCP) CT screening location: [address] ??[id number] HPV nRNA E6/E7 Not Detected Not Detected [facility] Comment: Methodology: Mechanical Applications Engineer-Mediated Amplification This assay detects E6/E7 viral messenger RNA (mRNA) from 14 high-risk HPV types (16,18,31,33,35,39,45,51,52,56,58,59,66,68). ? The analytical performance characteristics of this assay have been determined by [employer]. The modifications have not been cleared or approved by the FDA. This assay has been validated pursuant to the CLIA regulations and is used for clinical purposes. ?? For additional information, please refer to http://education.LibraryThing/faq/TYK542n6 (This link if provided for information/ educational purposes only.) Interpretation/Re sult: Negative for intraepithelial lesion or malignancy. [facility] LMP: NONE [facility] Neisseria gonorrhoeae RNA, TMA, Urogenital NOT DETECTED NOT DETECTED [facility] Prev. BX: NONE [facility] Prev. PAP: NONE [facility] SOURCE: None given [facility] Statement Of Adequacy: SEE COMMENT [facility] Comment: Satisfactory for evaluation. Endocervical/transformation zone component present. Age and/or menstrual status not provided Trichomonas vaginalis, QL, TMA, PAP Vial NOT DETECTED NOT DETECTED [facility] Comment: The analytical performance characteristics of this assay have been determined by [employer]. The modifications have not been cleared or approved by the FDA. This assay has been validated pursuant to the CLIA regulations and is used for clinical purposes. ?? For additional information, please refer to http://education.[employer].Fobbler/ faq/Trichomonastma (This link is being provided for information/ educational purposes only.) ?? 07/05/2021 9:12 AM EDT Chandni Burnett CNM LAB PATHOLOGY ORDERABLES Final Result [facility] [address] * Colonoscopy (08/13/2016) us Historical Provider HEALTH MAINTENANCE Final Result from Last 3 Months or Most Recently Relevant to Health Maintenance Insurance PPO Care Teams Workers Compensation Paralegal Relationship Specialty Start Date End Date Nancy Willis MD [address] [place] [id number] PCP - General Family Medicine 02/24/20
--- OUTSIDE RECORDS SUMMARY | 2024-10-18 11:15 | XMS_ITS | Encounter Summary ---
Author Organization [employer] Address [address] [place] [address] Care Team Providers Care Cotton Puller Name Role Phone Nancy Willis MD Primary Care Provide r Reason for Visit * Reason Comments Med Refill Encounter Details Date Type Department Care Team ([facility] st Contact Info) Description 01/29/2024 Refill [facility] [address] [place], [place] [phone] Nancy Willis MD [address] [place], [place] [phone] Prediabetes Social History Tobacco Use Types Packs/Day Years Used Date Smoking Tobacco: Never Passive Smoke Exposure: Never Smokeless Tobacco: Never Alcohol Use Standard Drinks/Week Comments Never 0 (1 standard drink = 0.6 oz pur e alcohol) Depression Answer Date Recorded Patient Health Questionnaire-9 [...] documented as of this encounter Care Teams Cotton Puller Relationship Specialty Start Date End Date Nancy Willis MD [address] [place] [address] PCP - General Family Medicine 02/24/20 documented as of this encounter
--- OUTSIDE RECORDS SUMMARY | 2024-10-18 11:15 | XMS_ITS | Encounter Summary ---
Author Organization [employer] Address [address] [place] [address] Care Team Providers Care Onsite Case Manager Name Role Phone Nancy Willis MD Primary Care Provide r Reason for Visit * Reason Onset Date Comments Appointment Request 08/19/2024 Encounter Details Date Type Department Care Team ([facility] st Contact Info) Description 08/19/[address] [facility] MEDICINE [address] [place], [place] [phone] Nancy Willis MD [address] [place], [place] [phone] Appointment Request Social History Tobacco Use Types Packs/Day Years [...] encounter Miscellaneous Notes * Telephone Encounter - Mika Layne - 08/19/2024 9:25 AM EST Tc from pt requesting a call back to schedule apt for Derm. Pt states hasn't received a call to getapt. Contact pt to schedule at [phone] documented in this encounter Plan of Treatment Not on file documented as of this encounter Visit Diagnoses Not on filedocumented in this encounter Additional Health Concerns Assessment Noted Time PHQ-9 Depression Total Score: 0 10/06/19 24 10:40 AM EST documented as of this encounter Care Teams Onsite Case Manager Relationship Specialty Start Date End Date Nancy Willis MD [address] [place] [address] PCP - General Family Medicine 02/24/20 documented as of this encounter
--- OUTSIDE RECORDS SUMMARY | 2024-10-18 11:15 | XMS_ITS | Encounter Summary ---
Author Organization [employer] Address [address] [place] [address] Care Team Providers Care Ballet Professor Name Role Phone Nancy Willis MD Primary Care Provide r Reason for Visit * Reason Onset Date Comments Referral 05/13/2024 Encounter Details Date Type Department Care Team (Late st Contact Info) Description 05/13/2024 Telephone [facility] MEDICINE [address] [place], [place] [phone] Nancy Willis MD [address] [place], [place] [phone] Referral Social History Tobacco Use Types Packs/Day [...] encounter Miscellaneous Notes * Telephone Encounter - Orlando Valladares - 05/13/2024 9:44 AM EDT Tc from patient calling in regards to the dermatology referral states has been waiting for almost 2months and does not want to wait no more documented in this encounter Plan of Treatment Not on file documented as of this encounter Visit Diagnoses Not on filedocumented in this encounter Additional Health Concerns Assessment Noted Time PHQ-9 Depression Total Score: 0 10/06/19 24 10:40 AM EST documented as of this encounter Care Teams Ballet Professor Relationship Specialty Start Date End Date Nancy Willis MD [address] [place] [address] PCP - General Family Medicine 02/24/20 documented as of this encounter
--- OUTSIDE RECORDS SUMMARY | 2024-10-18 11:16 | XMS_ITS | Encounter Summary ---
Author Organization [employer] Address [address] [place] [address] Care Team Providers Care Heat And Frost Insulator Name Role Phone Nancy Willis MD Primary Care Provide r Encounter Details Date Type Department Care Team ([facility] st Contact Info) Description 06/18/2023 Orders Only [facility] MEDICINE [address] [place] [address] Provider, MD Nancy Social History Tobacco Use Types Packs/Day Years Used Date Smoking Tobacco: Never Passive Smoke Exposure: Never Smokeless Tobacco: Never Alcohol Use Standard Drinks/Week Comments Never 0 (1 standard drink = 0.6 oz pur e alcohol) Depression Answer Date Recorded Patient Health Questionnaire-9 Score 0 12/10/2022 Housing Stability Answer Date Recorded What is your housing situation today? I have wusharri chairez 06/17/[address] you li ve. Do you have problems with any of the following? None of the above 06/17/2023 Food Insecurity Answer Date Recorded Within the past 12 months, y ou worried that your food would run out before you got money to buy more: Never True 06/17/2023 Within the past 12 months,th e food you bought just didn't last and you didn't have enough money to get more: Never True 06/2023 Transportation Answer Date Recorded In the past 12 months, has l ack of transportation kept you from medical appts, meetings, work or from getting things needed for daily living? No 06/17/2023 Utilities Answer Date Recorded In the past 12 months, has t he electric, gas, oil or water company threatened to shut off services in your home? No 06/17/2023 Depression Answer Date Recorded Patient Health Questionnaire-2 Score 0 12/10/2022 Comments Unknown Sex and Gender Information Value Date Recorded Sex Assigned at Female 07/08/2022 10:15 AM EDT Legal Sex Female 10:15 AM EDT Gender Identity Female 07/08/2022 10:15 AM EDT Sexual Orientation Straight 07/08/2022 10 :15 AM EDT documented as of this encounter Plan of Treatment Not on file documented as of this encounter Procedures Procedure Name Priority Date/Time Associated Diagnosis Comments COLONOSCOPY Routine 08/13/2016 documented in this encounter Results * Hm Colonoscopy (08/13/2016) us Historical Provider HEALTH MAINTENANCE Final Result documented in this encounter Visit Diagnoses Not on filedocumented in this encounter Additional Health Concerns Assessment Noted Time PHQ-9 Depression Total Score: 0 12/11/19 23 9:25 AM EDT documented as of this encounter Care Teams Heat And Frost Insulator Relationship Specialty Start Date End Date Nancy Willis MD [address] [place] [address] PCP - General Family Medicine 02/24/20 documented as of this encounter
--- OUTSIDE RECORDS SUMMARY | 2024-10-18 11:16 | XMS_ITS | Encounter Summary ---
Author Organization [employer] Address [address] [place] [address] Care Team Providers Care Director Of Strategic Sourcing Name Role Phone Nancy Willis MD Primary Care Provide r Reason for Visit * Reason Comments Med Refill Encounter Details Date Type Department Care Team (Late st Contact Info) Description 04/07/2023 Refill [facility] MEDICINE [address] [place] [address] Name, MD Kevon [address] [place] [address] Social History Tobacco Use Types Packs/Day Years Used Date Smoking Tobacco: Never Passive Smoke Exposure: Never Smokeless Tobacco: Never Alcohol Use Standard Drinks/Week Comments Never 0 (1 standard drink = 0.6 oz pur e alcohol) Depression Answer Date Recorded Patient Health Questionnaire-9 Score 0 12/10/2022 Depression Answer Date Recorded Patient Health Questionnaire-2 [...] documented as of this encounter Care Teams Director Of Strategic Sourcing Relationship Specialty Start Date End Date Nancy Willis MD [address] [place] [address] PCP - General Family Medicine 02/24/20 documented as of this encounter
--- OUTSIDE RECORDS SUMMARY | 2024-10-18 11:16 | XMS_ITS | Encounter Summary ---
Author Organization [employer] Address [address] 7 [place] [address] Care Team Providers Care Director Of Group Sales Name Role Phone Nancy Willis MD Primary Care Provide r Reason for Visit * Reason Comments Med Refill Encounter Details Date Type Department Care Team ([facility] st Contact Info) Description 01/20/2023 Refill [facility] MEDICINE [address] [place] [address] Name, MD Kevon [address] [place] [address] Social History Tobacco Use Types Packs/Day Years [...] of this encounter Care Teams Director Of Group Sales Relationship Specialty Start Date End Date Nancy Willis MD [address] [place] [address] PCP - General Family Medicine 02/24/20 documented as of this encounter
--- OUTSIDE RECORDS SUMMARY | 2024-10-18 11:16 | XMS_ITS | Encounter Summary ---
Author Organization [employer] Address [address] [place] [address] Care Team Providers Care Bead Preparer Name Role Phone Nancy Willis MD Primary Care Provide r Encounter Details Date Type Department Care Team ([facility] Contact Info) Description 04/04/2023 Orders Only [facility] [address] [place] [address] Anabel Bah LPN Social History Tobacco Use Types Packs/Day Years [...] documented as of this encounter Care Teams Bead Preparer Relationship Specialty Start Date End Date Nancy Willis MD [address] [place] [address] PCP - General Family Medicine 02/24/20 documented as of this encounter
--- OUTSIDE RECORDS SUMMARY | 2024-10-18 11:16 | XMS_ITS | Data Portability ---
Author Organization [email or web address] Address [address] [place] [id number] Care Team Providers Care Diver Assistant Name Role Phone HIM [facility] OTHER [facility] OTHER Assessment Encounter Date Assessment Date Assessment LastModified by Organization Details LastModified Time 05/17/2024 05/17/2024 I have reviewed and agree with the assessment and plan as documented by the timber watchman. I provided real time medical direction for this encounter and was immediately available to provide additional phone based assistance as needed. History as noted by timber watchman. Pt reporting about 2 months of itchy bug bites that started on lower legs around her ankles and now involve her back. She thinks she had been exposed to bugs and denies any possibility of bed bug exposure. Pt also denies any new medications or other substances prior to the onset of the lesions. Pt has been taking loratidine and applying hydrocortisone 2.5% to the lesions with now relief of the itching. She denies any intraoral or throat swelling or any cough or SOB. No fevers. On exam, pt afebrile. Skin with multiple scattered b/l punctate excoriations on lower legs and back. No erythema, warmth, tenderness or induration. No pustules or urticaria. Impression: Pt with 2 months of gradually worsening pruritic rash that she describes as bug bites , now involving her lower legs and back. No known new exposures prior to the onset of the lesions. On exam, there are multiple punctate excoriations on her b/l lower legs and back, no e/o bacterial infection, urticaria or bullae. Pt reports she is using prescribed hydrocortisone 2.5% bid with no relief. Etiology of these excoriations is not clear. I discussed with the pt that she needs to be evaluated by a nozzle worker to determine best course of evaluation and treatment. I prescribe hydroxyzine 25mg for the pt to use tid, prn itching. Pt told to call her primary care team to get a referral to a nozzle worker for further evaluation. To primary care team: Please arrange for dermatology referral for this patient. Pt instructed to seek medical attention right away with any worsening or new symptoms, which are reviewed with her. [email or web address] Not available 05/17/2024 15:53:07 07/01/2024 07/01/2024 I provided real -time medical direction via phone for this encounter and was available for additional phone-based assistance as needed. I have reviewed and agree with the Assessment and Plan as documented by the [employer]. Patient given the opportunity to ask questions. Our service contacted for an assessment of: rash As per above, patient with rash times 1-2 months. Taking atarax and applying hydrocortison cream. Has upcoming derm appt. Per timber watchman on the scene, VSS, AF. NAD, non-toxic. See uploaded picture. Impression: Rash - broad differential diagnosis Plan: F/u with derm. No infectious etiology is suspected. Will defer on treatment that was prescribed by her land survey technician Allergies: Reviewed and updated to include lisinopril and morphine PCP f/u: We discussed the diagnostic uncertainty of home visits and the risk associated with this. In this case, the patient and I felt this to be an acceptable and reasonable amount of risk given the benefit of avoiding an ED visit. We discussed the need to seek care urgently/emergent ly in the setting of any new or worsening serious symptoms, particularly fever chills [email or web address] Not available 07/01/2024 11:37:31 Plan of Treatment Reminders Order Date Submit Date Provider Last Modified By Organization Details Last Modified Time Details Appointments None recorded. Lab None recorded. Referral None recorded. Procedures None recorded. Surgeries None recorded. Imaging None recorded. Medication Orders hydroxyzine HCl [address] [facility] #[id number], [address] [place], [address], 15:41:06 Patient TargetsNo targets recorded. Patient InstructionsNo instructions recorded. Reason for Referral None Reported. Medical Equipment None Reported. Allergies Allergen ID Allergen Name Allergen Category Reaction Reaction Severity Criticality Documentation Date Start Date Code Code System Note Provider Name and Address Organization Details Recorded Time 4344 lisinopri l medicatio n Not available Not available Not available 07/01/2024 45613 RxNorm Noa Milton MD [address], [place], [phone], [facility] [employer] 4 11:37:07 6719 morphine medicatio n Not available Not available Not available 07/01/2024 7052 RxNorm Not Available [facility] - [facility] 4 03:35:58 Medications Name Sig Start Date Stop Date Status Note LastModified by Organization Details LastModified Time losartan 50 mg tablet TAKE 1 TABLET BY MOUTH EVERY DAY FOR 90 DAYS active Not Available Not Available No t Available metformin 500 mg tablet TAKE 1 TABLET BY MOUTH WITH BREAKFAST AND EVENING MEALS active Not Available Not Available No t Available BD Alcohol Swabs USE TO TEST BLOOD SUGAR ONE TIME DAILY active Not Available Not Available No t Available benzonatate 200 mg capsule TAKE 1 TABLET BY MOUTH 3 TIMES A DAY NEEDED FOR COUGH active Not Available Not Available No t Available prazosin 1 mg capsule TAKE 1-2 CAPSULES BY MOUTH AT BEDTIME FOR NIGHTMARES active Not Available Not Available N ot Available prednisone 20 mg tablet PLEASE SEE ATTACHED FOR DETAILED DIRECTIONS active Not Available Not Available N ot Available sertraline 100 mg tablet TAKE 2 TABLETS BY MOUTH EVERY MORNING active Not Available Not Available No t Available chlorthalido ne 25 mg tablet TAKE 1 TABLET BY MOUTH EVERY DAY active Not Available Not Available No t Available fenofibrate micronized 134 mg capsule TAKE 1 CAPSULE BY MOUTH EVERY DAY WITH FOOD active Not Available Not Available No t Available prednisolone acetate 1 % eye drops,suspen marcos INSTILL INSTILL 1 DROP TWICE DAILY TO LEFT EYE ONLY active Not Available Not Available No t Available lorazepam 0.5 mg tablet TAKE 1 TABLET BY MOUTH ONCE A DAY NEEDED FOR SEVERE ANXIETY/SEGURA IC-MAY PUT UNDER TONGUE active Not Available Not Available No t Available meclizine 25 mg tablet TAKE 1 TABLET BY MOUTH TWICE A DAY IF NEEDED FOR VERTIGO active Not Available Not Available No t Available sertraline 25 mg tablet active Not Available Not Available Not Available hydroxyzine HCl 25 mg tablet Take 1 tablet 3 times a day by oral route as needed for 10 days. 2023 active Not Available Not Available Not Avai lable albuterol sulfate HFA 90 mcg/actuatio n aerosol inhaler INHALE 2 PUFFS BY MOUTH 4 TIMES EVERY DAY NEEDED FOR SHORTNESS OF BREATH active Not Available Not Available No t Available losartan 100 mg tablet TAKE 1 TABLET BY MOUTH EVERY DAY IN THE MORNING active Not Available Not Available No t Available loratadine 10 mg tablet TAKE 1 TABLET BY MOUTH EVERY DAY IN THE MORNING active Not Available Not Available No t Available hydroxyzine pamoate 25 mg capsule TAKE 1 TO 2 CAPSULES BY MOUTH 4 TIMES A DAY NEEDED FOR ANXIETY active Not Available Not Available Not Available valsartan 40 mg tablet active Not Available Not Available No t Available mirtazapine 7.5 mg tablet TAKE 1 TABLET BY MOUTH AT BEDTIME NEEDED TO HELP WITH SLEEP active Not Available Not Available No t Available FreeStyle Lite Strips USE TO TEST BLOOD SUGAR ONE TIME DAILY active Not Available Not Available No t Available FreeStyle [place] Lite kit USE TO TEST BLOOD SUGAR ONE TIME DAILY active Not Available Not Available No t Available Vitamin D3 50 mcg (2,000 unit) capsule TAKE 1 CAPSULE BY MOUTH EVERY DAY active Not Available Not Available No t Available TRUEplus Lancets 33 gauge USE TO TEST BLOOD SUGAR ONCE A DAY active Not Available Not Available N ot Available Paxlovid 300 mg (150 mg x 2)-100 mg tablets in a dose pack TAKE 3 TABLETS BY MOUTH TWICE A DAY FOR 5 DAYS active Not Available Not Available No t Available Vitals Date Recorded Oxygen saturation Oxygen saturation in Arterial blood by Pulse oximetry Body height Heart rate Body weight Respiratory rate Body temperature Systolic blood pressure Diastolic blood pressure Provider Name and Address Organization Details Last Updated DateTime 4 99 % 99 % 162.56 cm 80 /min 25268.3 76 g 17 /min 98.6 [degF] 122 mm[Hg] 82 mm[Hg] Not Available [employer] 4 15:32:00 Date Recorded Body temperature Body weight Oxygen saturation Oxygen saturation in Arterial blood by Pulse oximetry Heart rate Respiratory rate Systolic blood pressure Diastolic blood pressure Provider Name and Address Organization Details Last Updated DateTime 4 98.5 [degF] 37833.3 76 g 98 % 98 % 86 /min 16 /min 154 mm[Hg] 78 mm[Hg] Not Available [employer] 4 11:33:15 Social History None recorded. Functional Status None recorded. Mental Status None recorded. Family History Nothing Reported. Medical History No medical history recorded. Gynecological HistoryNo gynecological history recorded. Obstetrics History GPAL:G 0 P 0 0 0 0 Past Encounters Encounter ID Performer Location Encounter Start Date Encounter Closed Date Diagnosis/Indication Diagnosis SNOMED-CT Code Diagnosis ICD10 Code Diagnosis Note [id number] Gurjit Leblanc MD Main - [address] [address] 05/17/2024 15:31:50 05/17/2024 22:54:42 Pruritic rash 48578498 L28.2 [id number] Noa Milton MD [facility] - [address] [address] 07/01/2024 11:33:07 07/01/2024 22:38:03 Localized eruption of skin 657190313 R21 Health Concerns Section Related Observation LastModified by Organization Detai ls LastModified Time None Recorded Concern Status LastModified by Organization Details LastModified Time None Recorded Advance Directives Directive None Recorded Payers Encounter Date Sequence Insurance Name Policy Number Policy Eddy Covered Member ID Eddy Member ID Guarantor Name 05/17/[address] [facility] [place] [place] - DOS ON OR AFTER 2022 - DUAL ELIGIBLE - RETIREMENT OPTIONS AND ONE CARE (MEDICARE REPLACEMENT/ADV ANTAGE - HMO) Gissel Ayala [id number] Gissel Ayala 07/01/[address] [facility] [place] - DOS ON OR AFTER 2022 - DUAL ELIGIBLE - RETIREMENT OPTIONS AND ONE CARE (MEDICARE REPLACEMENT/ADV ANTAGE - HMO) Gissel Ayala [id number] Gissel Ayala Notes Date Note Type Note Provider Name and Address Organization Details Recorded Time 05/17/2024 text/html This was a supervised home visit with timber watchman Guanako Holt. HPI: Patient reports one month of unresolved bug bites on hands and feet now on back. No blisters no spreading redness. Very itchy especially after hot shower at night. Using hydrocortisone with no noted relief.Patient with Dermatitis added to Dx 04/15/2024 .................... .................... .................... .................... .................... .................... .................... . CRC Nurse Triage Notes (Manju Pozo): Chief Complaints: Rash PMH: COPD/Asthma, Hypertension Allergies: Morphine Other Allergies: Luis Alberto inhibitors, lisinopril Comments: CRC RN DID NOT NEED FURTHER INFO .................... .................... .................... .................... .................... .................... .................... . [employer] Note From Guanako Holt: [facility] makes PT contact, 54 YO F CC of [facility] obtains vital signs. PT explains on 11 of march was bit by a horse fly on the left ankle. Since then has been experiencing rash like symptoms on both ankles, left hand, and the back. No evidence of bed bugs. PTs house very clean and has a new bed. Pictures taken and uploaded to [facility]. PT describes rash as itchy. PT using hydrocortisone prescription strength with no relief. PT also notes new onset swelling of the left ankle, no recent falls or trauma. PT denies sob, n/v, chest pain. PT has no other associated symptoms. [facility] contacts [facility] and explains above mentioned. [facility] sends a message to pt PCP about referral to nozzle worker to have a physical exam. PT also prescribed hydroxyzine to take three times a to hopefully relief some of the itching. PT understands above mentioned. .................... .................... .................... .................... .................... .................... .................... . Disposition: Fulfilled Gurjit Leblanc MD [address], [place], [address], [facility] [employer] 05/17/2024 16:28:51 07/01/2024 text/html HPI: Reports having rash on back x 1 month. Per pt purple spots. Pt reports intermittent itching. If scratches becomes painful. No fever. Pt has been applying hydrocortisone with mild relief. Pt given hydroxyzine for itching. Pt states rash is starting to spread. No [place] sx reported. Pt offered walk in center for today. Pt declines requests [facility] for exam. Confirmed address, phone number and allergies. .................... .................... .................... .................... .................... .................... .................... . CRC Nurse Triage Notes (Clarisse Gutierrez): Chief Complaints: Rash PMH: Hypertension, COPD/Asthma, Hypertension Allergies: Morphine Other Allergies: Lisinopril, Morphine Luis Alberto inhibitors Comments: HPI reviewed. No further information needed to process- [place] .................... .................... .................... .................... .................... .................... .................... . [employer] Note From Jcarlos Murry: Pt co rash on back for 1 month. Pt sts her land survey technician put her on hydrocortisone and hydroxyzine with some relief. pt feels the rash is spreading. Pt sts rash is itchy sometimes but not all the time. Pt sts has appt with nozzle worker July 17. Pt denies SOB, NVD, Cp, headache or dizziness. Baseline vitals assessed, WNL, Afebrile. Rash assessment, does not appear to be urticaria in nature. Negative wheeping/drainage or bleeding. [facility] Yoan contacted and advised pt to follow up with with nozzle worker during up coming appt. Pt advised to continue with current treatment plan. Pt education on signs indicating the ER. Pt advised to follow up with PCP. .................... .................... .................... .................... .................... .................... .................... . Disposition: Fulfilled Noa Milton MD [address], [place], [address], [email or web address] 07/01/2024 11:37:41 OBGyn Episode No OBEpisode recorded.
--- OUTSIDE RECORDS SUMMARY | 2024-10-18 11:16 | XMS_ITS | Clinical Summary ---
Author Organization [facility] Address [address] [place] [address] Care Team Providers Care Dietitian Therapeutic Name Role Phone Unavailable Primary Care Provider Unavailabl e Surgical History Surgery Date Site/Laterality Comments CHOLECYSTECTOMY PROCEDURE: [place] CHOLECYSTECTOMY OTHER SURGICAL HISTORY PROCEDURE: REFERRAL TO REPRODUCTIVE ENDOCRIN Medical History Medical History Date Comments Heart abnormality DX:Heart abnor mality Hypertension DX:Hypertension Anxiety DX:Anxiety Depression DX:Depression Social History Tobacco Use Types Packs/Day Years Used Date Smoking Tobacco: Never Smokeless Tobacco: Never Alcohol Use Standard Drinks/Week Comments No 0 (1 standard drink = 0.6 oz pur e alcohol) Comments Unknown Sex and Gender Information Value Date Recorded Sex Assigned at Not on file Legal Sex Female 11:46 PM EST Gender Identity Not on file Sexual Orientation Not on file Obstetrics History Plan of Treatment Health Maintenance Due Date Last Done Comments Breast Cancer Screening 1968 DTaP,Tdap,and Td Vaccines (1 - Tdap) 1975 Hepatitis B Vaccines (1 of 3 - 19+ 3-dose series) 1987 Cervical Cancer Screening: P ap Smear 1989 Pneumococcal Vaccine: 50+ Ye ars (1 of 1 - PCV) 2018 Zoster Vaccines (1 of 2) 2018 Colorectal Cancer Screening: Colonoscopy 08/11/2022 Depression Screening 08/11/2022 HIV Screening 08/11/2022 Hepatitis C Screening 08/11/2022 Social Influencers of Health Screening 08/11/2022 COVID-19 Vaccine ( - 2023-2 5 season) 2024 Influenza Vaccine (#1) 2024 06/11/2018 HIB Vaccines Aged Out No longer eligi [...] on patient's age to complete this topic MMR Vaccines Aged Out No longer eligi ble based on patient's age to complete this topic Meningococcal ACWY Vaccine Aged Out N o longer eligible based on patient's age to complete this topic Meningococcal B Vacine Aged Out No lo nger eligible based on patient's age to complete this topic Pneumococcal Vaccine: Pediat rics (0 to 5 Years) and At-Risk Patients (6 to 64 Years) Aged Out No longer eligi ble based on patient's age to complete this topic RSV Immunization Patients Un zay 20 months Aged Out No longer eligible b ased on patient's age to complete this topic Varicella Vaccines Aged Out No longer eligible based on patient's age to complete this topic
--- OUTSIDE RECORDS SUMMARY | 2024-10-18 11:17 | XMS_ITS | Encounter Summary ---
Author Organization [employer] Address [address] [place] [address] Care Team Providers Care Carbon Furnace Operator Name Role Phone Nancy Willis MD Primary Care Provide r Encounter Details Date Type Department Care Team ([facility] st Contact Info) Description 09/17/2024 Orders Only [facility] MEDICINE [address] [place] [address] Nancy Willis MD [address] [place] [address] Social History Tobacco Use Types Packs/Day Years [...] the past 12 months, has t he [employer], gas, oil or water [employer] threatened to shut off services in your [...] TOMOSYNTHESIS BILATERAL Routine 09/17/2024 10:45 AM EST documented in this encounter Results * BI Mammogram Screening Tomosynthesis Bilateral (09/17/2024 10:45 AM EST) Anatomical Region Laterality Modality Breast Bilateral Mammography 09/17/2024 10:4 5 AM EST Narrative 09/24/2024 4:02 PM EST ? [facility] ? [address] ?[place] [address] ? Mammography Report ? Signed ? Patient: Jamie,Gissel ?MR#: [id number] ?? 30 ? : 1970 ?Acct:[id number] ? Age/Sex: 54 / F ?ADM Date: 01/10/25 ? Loc: HO.MAMMO ? Attending Dr: Nancy Bates MD ? Ordering Physician: Nancy Willis MD ?Results: ?? 2Benign Findings ? Date of Service: 09/17/24 ?Follow Up: 1 Year From Orig ?? inal Mammogram ? Procedure(s): MM tomosynthesis screening BI ?? Accession Number(s): [id number] ? cc: Nancy Willis MD ? EXAMINATION: [...] DD/ 1045 ? TD/TT: 09/17/24 1110 ? Dimension Specification Inspector: ? Procedure Note Donotuseinterpreter, Image - 09/24/2024 [facility] [address] [place] [address] Mammography Report Signed Patient: Man Ayala#: [id number] 30 : 1970Acct:[id number] Age/Sex: 54 / FADM Date: 09/17/24 Loc: HO.MAMMO Attending Dr: Nancy Bates MD Ordering Physician: Nancy Willis MDResults: 2Benign Findings Date of Service: 09/17/24Follow Up: 1 Year From Orig inal Mammogram Procedure(s): MM tomosynthesis screening BI Accession Number(s): [id number] cc: Nancy Willis MD EXAMINATION: MM SCREENING [...] by: Joyce Schroeder DO 09/24/2024 03:59 PM [facility] Dictated By: Joyce Schroeder DO Signed By: <Electronically signed by Joyce Schroeder DO in OV> 09/24/24 1559 DD/ 1045 TD/TT: 09/17/24 1110 Dimension Specification Inspector: us Nancy Bates MD IMG BI PROCEDURES Harish joanna Result - Final documented in this encounter Visit Diagnoses Not on filedocumented in this encounter Additional Health Concerns Assessment Noted Time PHQ-9 Depression Total Score: 0 10/06/19 24 10:40 AM EST documented as of this encounter Care Teams Carbon Furnace Operator Relationship Specialty Start Date End Date Nancy Willis MD [address] [place] [address] PCP - General Family Medicine 02/24/20 documented as of this encounter
--- OUTSIDE RECORDS SUMMARY | 2024-10-18 11:17 | XMS_ITS | Encounter Summary ---
Author Organization [employer] Address [address] [place] [address] Care Team Providers Care Bdc Manager Name Role Phone Nancy Willis MD Primary Care Provide r Encounter Details Date Type Department Care Team (Latest Contact Info) Description 10/18/2024 Travel Social History Tobacco Use Types Packs/Day Years [...] documented as of this encounter Care Teams Bdc Manager Relationship Specialty Start Date End Date Nancy Willis MD [address] [place] [address] PCP - General Family Medicine 02/24/20 documented as of this encounter
--- OUTSIDE RECORDS SUMMARY | 2024-10-18 11:17 | XMS_ITS | Encounter Summary ---
Author Organization [employer] Address [address] [place] [address] Care Team Providers Care Cobbler Mckay Name Role Phone Nancy Willis MD Primary Care Provide r Reason for Visit * Reason Comments Med Refill Encounter Details Date Type Department Care Team ([facility] st Contact Info) Description 09/26/[address] [facility] MEDICINE [address] [place] [address] Nancy Willis MD [address] [place], [place] [phone] Essential hypertension Social History Tobacco Use Types Packs/Day Years [...] as of this encounter Visit Diagnoses Diagnosis Essential hypertension Unspecified essential hypertension documented in this encounter Additional Health Concerns Assessment Noted Time PHQ-9 Depression Total Score: 0 10/06/19 24 10:40 AM EST documented as of this encounter Care Teams Cobbler Mckay Relationship Specialty Start Date End Date Nancy Willis MD [address] [place] [address] PCP - General Family Medicine 02/24/20 documented as of this encounter
--- OUTSIDE RECORDS SUMMARY | 2024-10-18 11:17 | XMS_ITS | Encounter Summary ---
Author Organization [employer] Address [address] [place] [address] Care Team Providers Care Shipping And Receiving Supervisor Name Role Phone Nancy Willis MD Primary Care Provide r Reason for Visit * Reason Comments Pre-visit Planning SDOH screening negat rory and tobacco screening negative Encounter Details Date Type Department Care Team ([facility] st Contact Info) Description 10/06/2024 Patient Outreach [facility] MEDICINE [address] [place], [place] [phone] Nancy Willis MD [address] [place] [address] Pre-visit Planning (SDOH screening negative and tobacco screening negative) Social History Tobacco Use Types Packs/Day Years [...] Recorded Patient Health Questionnaire-2 Score 0 10/06/2023 Internet Access Answer Date Recorded Internet Access Q1 Yes 10/06/2024 Internet Access Q2 Not on file 10/06/2024 Comments Unknown Sex and Gender Information Value Date Recorded Sex Assigned at Female 07/08/2022 10:15 AM EDT Legal Sex Female 10:15 AM EDT Gender Identity Female 07/08/2022 10:15 AM EDT Sexual Orientation Straight 07/08/2022 10 :15 AM EDT documented as of this encounter Progress Notes * Donya Martínez - 10/06/2024 12:36 PM EST CC Donya placed successful outbound call to patient for pre-visit planning. Patient name and confirmed. Patient confirms appt date and time, and has transportation. Biggest concern for appointment at this time is none Patient advised to bring to appointment a photo id and insurance card. Appropriate screenings completed in anticipation of appointment. documented in this encounter Plan of Treatment Not on file documented as of this encounter Visit Diagnoses Not on filedocumented in this encounter Additional Health Concerns Assessment Noted Time PHQ-9 Depression Total Score: 0 10/06/19 24 10:40 AM EST documented as of this encounter Care Teams Shipping And Receiving Supervisor Relationship Specialty Start Date End Date Nancy Willis MD [address] [place] [phone] PCP - General Family Medicine 02/24/20 documented as of this encounter
--- OUTSIDE RECORDS SUMMARY | 2024-10-18 11:17 | XMS_ITS | Encounter Summary ---
Author Organization [employer] Address [address] [place] [address] Care Team Providers Care Nurse Auditor Name Role Phone Nancy Willis MD Primary Care Provide r Encounter Details Date Type Department Care Team (Latest Contact Info) Description 10/15/2024 11:00 AM EST Office Visit [facility] [address] [place], [place] [phone] Marisela Kern MD [address] [place] [address] Cheilitis (Primary Dx); Post-inflammatory hyperpigmentation Social History Tobacco Use Types Packs/Day Years [...] AM EDT documented as of this encounter Last Filed Vital Signs Vital Sign Reading Time Taken Comments Blood Pressure 152/80 10/15/2024 10:56 AM EST Pulse 70 10/15/2024 10:56 AM EST Temperature 36.6 ??C (97.8 ??F) 10/15/2024 10:[address] Respiratory Rate 18 10/15/2024 10:56 AM EST Oxygen Saturation - - Inhaled Oxygen Concentration - - Weight 84.6 kg (186 lb 6.4 oz) 10/15/2024 10:56 AM EST Height 162.6 cm (5' 4 ) 10/15/2024 10:56 AM EST Body Mass Index 32 10/15/2024 10:56 AM EST documented in this encounter Progress Notes * Marisela Kern MD - 10/15/2024 11:00 AM EST Subjective Patient ID: Gissel Ayala is a 54 y.o. female who presents for No chief complaint on file.. HPI 54 yr old woman with hx of lip rash that has resolved with different treatment OTC . She has also itchy spots on back. She uses a moisturizer that helped. Review of Systems Constitutional: Negative for diaphoresis, fatigue and fever. HENT: Negative for ear discharge, ear pain, facial swelling and hearing loss. Respiratory: Negative for cough, choking, chest tightness and shortness of breath. Cardiovascular: Negative for chest pain and leg swelling. Gastrointestinal: Negative for abdominal distention, abdominal pain and anal bleeding. Endocrine: Negative for cold intolerance and heat intolerance. Genitourinary: Negative for enuresis, flank pain and frequency. Musculoskeletal: Negative for arthralgias, back pain and gait problem. Neurological: Negative for dizziness, facial asymmetry and headaches. Psychiatric/Behavioral: Negative for agitation, behavioral problems and confusion. Objective Physical Exam Constitutional: Appearance: Normal appearance. HENT: Head: Normocephalic and atraumatic. Nose: Nose normal. Eyes: Pupils: Pupils are equal, round, and reactive to light. Pulmonary: Effort: Pulmonary effort is normal. Musculoskeletal: General: Normal range of motion. Cervical back: Normal range of motion. Skin: Comments: Hyperpigmented spots on mid and lower back Neurological: General: No focal deficit present. Mental Status: She is alert. Assessment/Plan Diagnoses and all orders for this visit: Cheilitis Use pure 100% petrolatum gel Potentially due to cosmetics. Resolved now Post-inflammatory hyperpigmentation Likely due to folliculitis, resolved now Apply moisturizer regularly. documented in this encounter Plan of Treatment Not on file documented as of this encounter Visit Diagnoses Diagnosis Cheilitis- Primary Diseases of lips Post-inflammatory hyperpigmentation Dyschromia, unspecified documented in this encounter Additional Health Concerns Assessment Noted Time PHQ-9 Depression Total Score: 0 10/06/19 24 10:40 AM EST documented as of this encounter Care Teams Nurse Auditor Relationship Specialty Start Date End Date Nancy Willis MD [address] [place] [id number] PCP - General Family Medicine 02/24/20 documented as of this encounter
--- OUTSIDE RECORDS SUMMARY | 2024-10-18 11:17 | XMS_ITS | Encounter Summary ---
Author Organization [employer] Address [address] [place] [address] Care Team Providers Care Holiday Detector Operator Name Role Phone Nancy Willis MD Primary Care Provide r Reason for Visit * Reason Onset Date Comments insurance 10/14/2024 Encounter Details Date Type Department Care Team (Late st Contact Info) Description 10/14/2024 Telephone [facility] [address] [place], [place] [phone] Nancy Willis MD [address] [place], [place] [phone] insurance Social History Tobacco Use Types Packs/Day Years [...] encounter Miscellaneous Notes * Telephone Encounter - Odalis Connell - 10/14/2024 2:58 PM EST Called pt to inform them that their insurance [employer] was inactive pt said she has a new insurance which was [employer] pt gave me the member ID. Pt insurance is active she is all set for tomorrow appt. documented in this encounter Plan of Treatment Not on file documented as of this encounter Visit Diagnoses Not on filedocumented in this encounter Additional Health Concerns Assessment Noted Time PHQ-9 Depression Total Score: 0 10/06/19 24 10:40 AM EST documented as of this encounter Care Teams Holiday Detector Operator Relationship Specialty Start Date End Date Nancy Willis MD [address] [place] [address] PCP - General Family Medicine 02/24/20 documented as of this encounter
--- OUTSIDE RECORDS SUMMARY | 2024-10-18 11:17 | XMS_ITS | Encounter Summary ---
Author Organization [employer] Address [address] [place] [address] Care Team Providers Care Draw String Knotter Name Role Phone Nancy Willis MD Primary Care Provide r Reason for Visit * Reason Onset Date Comments Chart Prep 10/13/2024 Encounter Details Date Type Department Care Team ([facility] st Contact Info) Description 10/13/2024 Telephone [facility] [address] [place] [address] Arian Wells [place] Chart Prep Social History Tobacco Use Types Packs/Day Years [...] encounter Miscellaneous Notes * Telephone Encounter - Arian Wells [place] - 10/13/2024 3:50 PM EST Chart Prep Labs: done Images: done Vaccines due: yes Referrals: complete Screenings: Up to date Overdue care gaps: PHQ-9 documented in this encounter Plan of Treatment Not on file documented as of this encounter Visit Diagnoses Not on filedocumented in this encounter Additional Health Concerns Assessment Noted Time PHQ-9 Depression Total Score: 0 10/06/19 24 10:40 AM EST documented as of this encounter Care Teams Draw String Knotter Relationship Specialty Start Date End Date Nancy Willsi MD [address] [place] [address] PCP - General Family Medicine 02/24/20 documented as of this encounter
--- OUTSIDE RECORDS SUMMARY | 2024-10-18 11:17 | XMS_ITS | Encounter Summary ---
Author Organization [employer] Address [address] [place] [address] Care Team Providers Care Can Reconditioner Name Role Phone Nancy Willis MD Primary Care Provide r Reason for Referral * Imaging (Routine) - Authorized Specialty Diagnoses / Procedures Referred By Contac t Referred To Contact Cardiology Diagnoses Leg edema Procedures Vascular US lower extremity venous duplex bilateral Nancy Willis MD [address] [place] [address] Phone: tel: fax: [address] Phone: tel: fax: Referral ID Status Reason Start Date Expiration Date Visits Requested Visits Authorized [id number] Authorized Perform Procedure 10/18/2024 10/18/2025 1 1 Reason for Visit * Reason Comments Annual Exam Encounter Details Date Type Department Care Team (Late st Contact Info) Description 10/18/2024 9:15 AM EST Office Visit [facility] [address] [place], [place] [phone] Nancy Willis MD [address] [place] [address] [phone] Encounter for preventive care (Primary Dx); Class 1 obesity due to excess calories with serious comorbidity and body mass index (BMI) of 32.0 to 32.9 in adult; Prediabetes; Essential hypertension; Leg edema; Encounter for immunization Social History Tobacco Use Types Packs/Day Years [...] Mass Index 32.16 10/18/2024 9:05 AM EST documented in this encounter Plan of Treatment Scheduled Orders Name Type Priority Associated Diagnoses Orde r Schedule Comprehensive Metabolic Panel Lab Routine Encounter for preventive care Expected: 10/18/2024 (Approximate), Expires: 10/18/2025 Hemoglobin A1c Lab Routine Encounter for preventive care Expected: 10/18/2024 (Approximate), Expires: 10/18/2025 HIV-1/2 Antigen and Antibodies, Fourth Generation, with Reflexes Lab Routine Encounter for preventive care Expected: 10/18/2024 (Approximate), Expires: 10/18/2025 Hepatitis C Antibody with Reflex to HCV, RNA, Quantitative, Real-Time PCR Lab Routine Encounter for preventive care Expected: 10/18/2024, Expires: 10/18/2025 Lipid Panel, Standard Lab Routine Encounter for preventive care Expected: 10/18/2024 (Approximate), Expires: 10/18/2025 Vitamin D, 25-Hydroxy, Total, Immunoassay Lab Routine Encounter for preventive care Expected: 10/18/2024 (Approximate), Expires: 10/18/2025 TSH with Reflex to Free T4 Lab Routine Encounter for preventive care Expected: 10/18/2024 (Approximate), Expires: 10/18/2025 documented as of this encounter Procedures Procedure Name Priority Date/Time Associated Diagnosis Comments CBC WITH AUTO DIFFERENTIAL Routine 10/18/2024 10:28 AM EST Encounter for preventive care documented in this encounter Results * CBC auto differential (10/18/2024 10:28 AM EST) White Blood Count 7.1 4.8 - 10.8 X10*3/uL [facility] Red Blood Count 4.68 4.20 - 5.50 X10*6/uL [facility] Hemoglobin 13.2 12.0 - 16.0 g/dl [facility] Hematocrit 39.1 37.0 - 47.0 % [facility] Mean Corpuscular Volume 83.5 80.0 - 98.0 fL [facility] Mean Corpuscular Hemoglobin 28.2 27.0 - 33.0 pg [facility] Mean Corpuscular HGB Conc 33.8 31.0 - 35.0 g/dl [facility] Red Cell Distribution Width 12.3 11.0 - 16.0 % [facility] Platelet Count 293 160 - 400 X10*3/uL [facility] Mean Platelet Volume 10.5 9.4 - 12.3 fL [facility] Neutrophils Percent Auto 51.6 45 - 73 % [facility] Imm Gran Pct Auto 0.3 0.0 - 0.4 % [facility] Lymphocytes Percent Auto 36.3 20 - 40 % [facility] Monocytes Percent Auto 8.5 2 - 11 % [facility] Eosinophils Percent Auto 2.3 0 - 4 % [facility] Basophils Percent Auto 1.0 0 - 2 % [facility] NRBC Pct Auto 0.0 0.0 - 0.2 /100WBC [facility] Neutrophils Absolute Auto 3.6 2.0 - 8.3 x10*3/uL [facility] Imm Gran Abs Auto 0.02 0.00 - 0.03 X10*3/uL [facility] Lymphocytes Absolute Auto 2.6 1.2 - 4.9 X10*3/uL [facility] Monocytes Absolute Auto 0.6 0.1 - 1.2 X10*3/uL [facility] Eosinophils Absolute Auto 0.2 0.0 - 0.4 X10*3/uL [facility] Basophils Absolute Auto 0.1 0.0 - 0.2 X10*3/uL [facility] NRBC Abs Auto 0.000 0.0 - 0.012 X10*3/uL [facility] Blood Venous blood specimen / Unknown 10/18/2024 10:28 AM EST 10/18/2024 11:06 AM EST us Nancy Bates MD LAB BLOOD ORDERABLES Final Result [facility] [address] [place] [address] [phone] documented in this encounter Visit Diagnoses Diagnosis Encounter for preventive care- Primary Class 1 obesity due to excess calories with serious comorbidity and body mass index (BMI) of 32.0 to 32.9 in adult Prediabetes Other abnormal glucose Essential hypertension Unspecified essential hypertension Leg edema Edema Encounter for immunization documented in this encounter Additional Health Concerns Assessment Noted Time PHQ-9 Depression Total Score: 0 10/06/19 24 10:40 AM EST documented as of this encounter Care Teams Can Reconditioner Relationship Specialty Start Date End Date Nancy Willis MD [address] [place] [address] PCP - General Family Medicine 02/24/20 documented as of this encounter
--- OUTSIDE RECORDS SUMMARY | 2024-10-18 11:17 | XMS_ITS | Encounter Summary ---
Author Organization [email or web address] Address [address] [place] [address] Care Team Providers Care Resume Writer Name Role Phone Nancy Willis MD Primary Care Provide r Encounter Details Date Type Department Care Team (Latest Contact Info) Description 10/15/2024 Travel Social History Tobacco Use Types Packs/Day [...] documented as of this encounter Care Teams Resume Writer Relationship Specialty Start Date End Date Nancy Willis MD [address] [place] [address] PCP - General Family Medicine 02/24/20 documented as of this encounter
[2024-10-18 11:25] LABS: Estimated Average Glucose 123 mg/dL; Hemoglobin A1C 141.8567 umol/L; Hemoglobin A1c % 5.9 % (<6.0); Total Hemoglobin (HGBA1C) 3440.3871 umol/L
[2024-10-18 11:33] LABS: Alanine Aminotransferase 60 U/L (0-31); Albumin Level 4.6 g/dL (3.5-5.0); Alkaline Phosphatase 48 U/L (39-117); Anion Gap 11 (12-20); Aspartate Amino Transferase 41 U/L (5-31); Bilirubin Total 0.4 mg/dL (0.0-1.0); Blood Urea Nitrogen 18 mg/dL (9-16); Calcium 10.1 mg/dL (8.4-10.2); Carbon Dioxide 28 mmol/L (22-29); Chloride 105 mmol/L (96-108); Cholesterol 172 mg/dL (<200); Estimated Glomerular Filt Rate > 60; Glucose Random 99 mg/dL (60-115); HDL Cholesterol 49 mg/dL (>40); LDL Cholesterol Calculated 87 mg/dL (<100); Sodium 140 mmol/L (135-145); Total Protein 7.8 g/dL (6.5-8.0); Triglycerides 182 mg/dL (<150)
[2024-10-18 11:47] LABS: HIV AB/AG Nonreactive (Nonreactive); HIV Num 1 0.05 S/CO (0.00-0.99); ~HepC Num1 0.07 S/CO (0.00-0.79); ~Hepatitis C Antibody Nonreactive (Nonreactive)
[2024-10-18 11:50] LABS: TSH reflex Free T4 1.29 uIU/mL (0.32-4.0); Vitamin D 25-OH Total 42.1 ng/mL (>30)
== END 2024-10-18 10:24 | disposition home or self-care (01) ==
LOC: HO.HHCL 10:23
PROVIDERS: Visit Provider Internal Medicine
DX: Z00.00 Encounter for general adult medical examination without abnormal findings (principal); Z13.1 Encounter for screening for diabetes mellitus
CPT/HCPCS: 36415; 80053; 80061; 82306; 83036; 84443; 85025; 86803; 87389

== ENCOUNTER 2024-12-06 10:04 | Emergency (ER) | payer MEDICARE, SELFPAY ==
--- NOTE | ~2024-12-06 | CT_ITS ---
EXAMINATION: CT CHEST WITH CONTRAST CLINICAL INFORMATION: Necrotic nipples, necrosis under bilateral arm status post plastic surgery. COMPARISON: No prior CT of the chest. TECHNIQUE: Multidetector volumetric CT imaging of the chest was obtained after the administration of 50 mL of Omnipaque 350 intravenous contrast without immediate adverse reactions. Axial MIP volume rendering provided. Sagittal and coronal reformatted images were obtained. This CT examination was performed using dose optimization techniques as appropriate, variously including the following: *Automated exposure control *Adjustment of mA and/or kV according to patient size (this includes techniques or standardized protocols for targeted exams where dose is matched to indication/reason for exam; i.e. extremities or head) *Use of iterative reconstruction technique FINDINGS: LUNGS: The lungs are clear with no evidence of consolidation or abnormal opacities. There are no effusions or pneumothoraces. Small airways appear normal. Central airways are patent. MEDIASTINUM: The mediastinum is normal. PLEURA: There is no pleural effusion. No pleural mass or thickening. AXILLA/CHEST WALL: There are bilateral subpectoral breast implants in place. There is fat stranding surrounding the anterior and inferior poles of the implants, extending to both the inferolateral breast margins, and periareolar regions as well. There are retroareolar foci of subcutaneous gas. There are open wounds inferolateral to both breasts. Subcutaneous fat stranding is present diffusely involving the mid and posterior thorax and upper abdomen. There is no encapsulated or organized subcutaneous fluid collection. UPPER ABDOMEN: There is a bilobed peripherally calcified splenic artery aneurysm measuring 1.4 x 1.2 cm. There is diffuse fatty infiltration of liver. There has been a cholecystectomy. There has been a prior gastric bypass procedure. OSSEOUS STRUCTURES: There is no lytic or blastic bone lesion identified. There are mild spinal degenerative changes present. CT/CT chest w IV con IMPRESSION: 1.There are bilateral subpectoral breast implants in place. There is fat stranding surrounding the anterior and inferior poles of the implants, extending to both the inferolateral breast margins, and periareolar regions. There are subcutaneous open wounds along the inferolateral breast margins. There are retroareolar foci of subcutaneous gas. There is no organized focal subcutaneous fluid collection. 2. Subcutaneous fat stranding is present surrounding the entire mid and posterior thorax extending into the upper abdomen. 3. The lungs are clear. There are no effusions or pneumothorax. 4. Fatty infiltration of liver. Cholecystectomy. 5. Post gastric bypass surgery. 6. Peripherally calcified splenic artery aneurysm measuring 1.4 x 1.2 cm. Electronically signed by: Matt Burnette MD 12/06/2024 03:19 PM EDT
[2024-12-06 10:07] VITALS: BP 117/66; PULSE 122; RESP 16; TEMP 36.7; O2SAT 100; BMI 30.7
[2024-12-06 10:24] LABS: MANUAL DIFF FLAG NO
[2024-12-06 10:25] LABS: Basophils Absolute Auto 0.1 X10*3/uL (0.0-0.2); Basophils Percent Auto 0.7 % (0-2); Eosinophils Absolute Auto 0.3 X10*3/uL (0.0-0.4); Eosinophils Percent Auto 4.3 % (0-4); Hemoglobin 9.4 g/dl (12.0-16.0); Imm Gran Abs Auto 0.08 X10*3/uL (0.00-0.03); Imm Gran Pct Auto 1.1 % (0.0-0.4); Lymphocytes Absolute Auto 2.1 X10*3/uL (1.2-4.9); Lymphocytes Percent Auto 27.8 % (20-40); Mean Corpuscular HGB Conc 32.4 g/dl (31.0-35.0); Mean Corpuscular Volume 89.5 fL (80.0-98.0); Mean Platelet Volume 8.6 fL (9.4-12.3); Monocytes Absolute Auto 0.8 X10*3/uL (0.1-1.2); Monocytes Percent Auto 11.1 % (2-11); Neutrophils Absolute Auto 4.1 x10*3/uL (2.0-8.3); Platelet Count 398 X10*3/uL (160-400); Red Blood Count 3.24 X10*6/uL (4.20-5.50); Red Cell Distribution Width 13.6 % (11.0-16.0); White Blood Count 7.4 X10*3/uL (4.8-10.8)
[2024-12-06 10:38] LABS: Anion Gap 13 (12-20); Blood Urea Nitrogen 17 mg/dL (9-16); Calcium 9.1 mg/dL (8.4-10.2); Carbon Dioxide 24 mmol/L (22-29); Chloride 110 mmol/L (96-108); Creatinine Clr Calc Pharmacy 89.9; Estimated Glomerular Filt Rate > 60; Glucose Random 98 mg/dL (60-115); Potassium 3.8 mmol/L (3.3-5.1); Sodium 143 mmol/L (135-145)
[2024-12-06 11:16] VITALS: BP 125/74; PULSE 74; RESP 13; O2SAT 97
--- NOTE | 2024-12-06 12:52 | ED.GENADULT ---
HPI - General Adult General Chief complaint: General Medical Stated complaint: ? Infection Surgery Reduction of Breasts Time Seen by Provider: 12/06/24 11:50 Source: patient Mode of arrival: ambulatory Limitations: no limitations History of Present Illness ED Provider: Dr. Suzanne Garvey HPI narrative: Patient comes to the emergency room complaining of surgical complications/ infection adhesion. According to the patient, it back in 2016 she had a bariatric surgery done and since then she has been losing a lot of weight. Patient states that injury to the weight loss, she needed a breast reduction and went to [facility] to get the surgery done. According to the patient, she had surgery done on 11/16/2024. Patient believes that they might have done liposuction in some areas in her back. patient states that she stayed in [facility] for the next 10 days postop. Patient started developing necrotic eschars in the nipple area and she was told by her surgeonthat this was normal/expected. patient states that the necrotic tissue keeps expanding and now she is draining small amounts of pus from the nipple surgical sites bilaterally. Patient denies fever or chills. Patient complaining of pain all around the surgical area including both breasts both bilateral aspects and the back Related Data Home Medications ?Medication ?Instructions ?Recorded ?Confirmed albuterol sulfate 90 mcg/actuation 1 puff inhalation Q4-6H PRN 09/06/20 10/19/20 aerosol inhaler Wheezing chlorthalidone 25 mg tablet 25 mg PO DAILY 09/06/20 10/19/20 fluticasone propionate 50 2 spray intranasal DAILY 09/06/20 10/19/20 mcg/actuation nasal spray,suspension hydroxyzine pamoate 25 mg capsule 25 mg PO BID PRN Anxiety 09/06/20 10/19/20 ketotifen fumarate 0.025 % (0.035 1 drp ophthalmic (eye) ONCE PRN 09/06/20 10/19/20 %) eye drops Itching loratadine 10 mg tablet 10 mg PO DAILY 09/06/20 10/19/20 lorazepam 0.5 mg tablet 0.5 mg PO DAILY PRN anxiety attack 09/06/20 10/19/20 losartan 25 mg tablet 25 mg PO DAILY 09/06/20 10/19/20 prazosin 1 mg capsule 1 mg PO DAILY 09/06/20 10/19/20 sertraline 100 mg tablet 150 mg PO QAM 09/06/20 10/19/20 trazodone 50 mg tablet 25 mg PO BEDTIME PRN insomnia 09/06/20 10/19/20 Previous Rx's ?Medication ?Instructions ?Recorded ibuprofen 600 mg tablet 600 mg PO Q6H PRN pain #30 tabs 10/06/20 oxycodone-acetaminophen 5 mg-325 1 - 2 tab PO Q4-6H PRN pain #30 10/06/20 mg tablet (Percocet) tabs docusate sodium 100 mg capsule 100 mg PO BID #60 caps 09/14/21 (Colace) Allergies Allergy/AdvReac Type Severity Reaction Status Date / Time seasonal Allergies Allergy Wheezing Uncoded 12/06/24 10:11 Review of Systems Review of Systems: Constitutional : No Weight loss, No Fever, No Chills, No Night Sweats, No Fatigue, No Malaise ENT/Mouth : No Hearing loss, No Ear Pain, No Nasal Congestion, No Sinus Pain, No Hoarseness, No sore throat, No Rhinorrhea, No Swallowing Difficulty Eyes: No Eye Pain, No Swelling, No Redness, No Foreign Body, No Discharge, No Vision Changes Cardiovascular : No Chest Pain, No SOB, No Dyspnea on Exertion, No Orthopnea, No Edema, No Palpitations Respiratory : No Cough, No Sputum, No Wheezing, No Smoke Exposure, No Dyspnea Gastrointestinal : No Nausea, No Vomiting, No Diarrhea, No Constipation, No abdominal Pain, No Hematochezia, No Melena Genitourinary : no irregular bleeding, No Dysuria, No Urinary Frequency, No Hematuria, No Urinary Incontinence, No Urgency, No Flank Pain, No Urinary Flow Changes, No Hesitancy Musculoskeletal : No joint pain, No Myalgias, No Joint Swelling Skin : complaining of necrotic tissue around the nipples, bilateral aspects lateral to the breast and back on the left Neuro : No Weakness, No Numbness, No Paresthesias, No Loss of Consciousness, No Dizziness, No Headache Psych : No Anxiety/Panic, No Depression, No SI/HI/AH/VH, No Social Issues, Heme/Lymph: No Bruising, No Bleeding,No Lymphadenopathy Endocrine : No Polyuria, No Polydipsia, No Temperature Intolerance PMFSH Past Medical History Medical History GERD (gastroesophageal reflux disease) Anxiety Internal and external hemorrhoids without complication Hypertension Depression Surgical History (Updated 12/06/24 @ 15:06 by Neela Magallon) S/P breast augmentation H/O breast augmentation History of endometrial ablation Hx of cholecystectomy History of esophagogastroduodenoscopy (EGD) Family History Family History Paternal Aunt History of breast cancer Maternal Aunt History of breast cancer Social History Social History Alcohol intake: current Alcohol intake frequency: holidays/special occasions only Smoked in Last 30 Days: No Use of substances other than those prescribed or required for medical reasons: No Advance Directives: No Advance Directives Information Provided: Yes Patient : No Physical Exam ED Vital Signs: Vital Signs - 24 hr 12/06/24 10:07 12/06/24 11:16 12/06/24 14:58 Temperature 98.1 F Pulse Rate 122 H 74 106 H Respiratory Rate 16 13 18 Blood Pressure 117/66 125/74 121/65 Pulse Oximetry 100 97 96 Oxygen Delivery Method Room Air Room Air Room Air BMI result Body Mass Index 30.7 Const Other: Appearance: Alert. Oriented X3. No acute distress. Eyes: Pupils equal, round and reactive to light. ENT: Pharynx normal. Neck: Normal inspection. Neck supple. No lymph nodes noted. No crepitus CVS: Normal heart rate and rhythm. Pulses normal. Normal S1 and S2 Respiratory: No respiratory distress. Breath sounds normal. No Wheezing. No rales Abdomen: Soft and nontender. No rigidity. No distention. Skin: patient has necrotic tissue in both nipples, bilateral aspects of both breasts and 1 eschar in the back, They he has since of the surgical sites on bilateral aspects of both breasts, see pictures below Extremities: No lower extremity edema. No Lacerations. No Rash Neuro: Oriented X 3. No motor deficit. No sensory deficit. Moving all extremities. No slurred speech. CN 2 through 12 grossly intact Psych: calm, cooperative, normal affect Medications Administered Discontinued Medications Generic Name Dose Route Start Last Admin Trade Name Freq PRN Reason Stop Dose Admin Sodium Chloride 1,000 mls @ 999 mls/hr 12/06/24 12:14 12/06/24 15:00 Ns IVCONT 12/06/24 13:14 Infused .Q1H1M ONE Infusion Vancomycin HCl 2,000 mg in 500 mls @ 250 mls/hr 12/06/24 12:14 12/06/24 14:57 Vancomycin/Ns IV 12/06/24 14:13 250 mls/hr ONCE ONE Administration Piperacillin Sod/Tazobactam 50 mls @ 100 mls/hr 12/06/24 12:14 12/06/24 14:50 Sod 3.375 gm/ Sodium Chloride IV 12/06/24 12:43 Infused ONCE ONE Infusion Iohexol 65 ml 12/06/24 14:41 12/06/24 14:42 Iohexol 350 Mg/Ml 100 Ml Infus..Btl IV 12/06/24 14:42 65 ml ONCE ONE Administration Medical Decision Making Medical Decision Making MDM Narrative: fluids, vancomycin and Zosyn was given to the patient empirically. At this time, no fever, no episodes of hypotension, sepsis is not suspected I discussed the patient with Dr. Saunders and Dr. Porter from General surgery. They determine that we can not take care of the patient at this facility. my interpretation of labs: Patient's white blood cell count 7.4, hemoglobin 9.4 which is lower than patient's hemoglobin last month of 13.2. Hematocrit 29, last month 39.1. Platelets within normal limits at 398. Chemistry within normal limits. Lactic acid 1.2 CT scan of the chest shows subcutaneous open wounds along the inferolateral breast margins. There are retro areolar foci of subcutaneous gas, no subcutaneous fluid collection. Incidentally, a calcified splenic artery aneurysm measuring 1.4 x 1.2 cm were seen on her CAT scan. I discussed the patient with plastic surgery from [facility]. Recommendations: Discussed with our surgeons possible surgery here at [facility] including debridement and breast implant removal. However, our surgeons decided I would be best to transfer the patient to [facility]. Patient was accepted to [facility], ER to ER, accepting physician Dr. Katz I discussed the above-mentioned with the patient, patient agreeable with plan. Differential Diagnosis Differential Diagnoses: The differential diagnosis associated with the presentation includes Admission/Observation Consideration of admission/observation: Escalation of care including admission/observation considered Consult Healthcare Provider Management of the patient was discussed with: [employer] Lab Data MDM Lab Attestation statement: I reviewed the patient's lab results. 12/06/24 10:21 12/06/24 10:21 Labs: Lab Results 12/06/24 12/06/24 Range/Units 10:21 13:52 WBC 7.4 (4.8-10.8) X10*3/uL RBC 3.24 L D (4.20-5.50) X10*6/uL Hgb 9.4 L D (12.0-16.0) g/dl Hct 29.0 L D (37.0-47.0) % MCV 89.5 (80.0-98.0) fL MCH 29.0 (27.0-33.0) pg MCHC 32.4 (31.0-35.0) g/dl RDW 13.6 (11.0-16.0) % Plt Count 398 D (160-400) X10*3/uL MPV 8.6 L (9.4-12.3) fL Immature Gran % (Auto) 1.1 H (0.0-0.4) % Neut % (Auto) 55.0 (45-73) % Lymph % (Auto) 27.8 (20-40) % [place] % (Auto) 11.1 H (2-11) % Eos % (Auto) 4.3 H (0-4) % Baso % (Auto) 0.7 (0-2) % Lymph # (Auto) 2.1 (1.2-4.9) X10*3/uL [place] # (Auto) 0.8 (0.1-1.2) X10*3/uL Eos # (Auto) 0.3 (0.0-0.4) X10*3/uL Baso # (Auto) 0.1 (0.0-0.2) X10*3/uL Abs Immat Gran (auto) 0.08 H (0.00-0.03) X10*3/uL Absolute Neuts (auto) 4.1 (2.0-8.3) x10*3/uL Absolute Nucleated RBC 0.000 (0.0-0.012) X10*3/uL Nucleated RBC % (auto) 0.0 (0.0-0.2) /100WBC Sodium 143 (135-145) mmol/L Potassium 3.8 (3.3-5.1) mmol/L Chloride 110 H (96-108) mmol/L Carbon Dioxide 24 (22-29) mmol/L Anion Gap 13 (12-20) BUN 17 H (9-16) mg/dL Creatinine 0.72 (0.5-1.4) mg/dL Estim Creat Clear Calc 89.9 Estimated GFR > 60 Random Glucose 98 (60-115) mg/dL Lactic Acid 1.2 (0.5-2.0) mmol/L Calcium 9.1 D (8.4-10.2) mg/dL Independent Interpretation I performed an independent interpretation of an: CT Scan Radiology Impression Discussion of test interpretation with radiology: I have reviewed the radiologist's reading. Radiologist Impression: FINDINGS: LUNGS: The lungs are clear with no evidence of consolidation or abnormal opacities. There are no effusions or pneumothoraces. Small airways appear normal. Central airways are patent. MEDIASTINUM: The mediastinum is normal. PLEURA: There is no pleural effusion. No pleural mass or thickening. AXILLA/CHEST WALL: There are bilateral subpectoral breast implants in place. There is fat stranding surrounding the anterior and inferior poles of the implants, extending to both the inferolateral breast margins, and periareolar regions as well. There are retroareolar foci of subcutaneous gas. There are open wounds inferolateral to both breasts. Subcutaneous fat stranding is present diffusely involving the mid and posterior thorax and upper abdomen. There is no encapsulated or organized subcutaneous fluid collection. UPPER ABDOMEN: There is a bilobed peripherally calcified splenic artery aneurysm measuring 1.4 x 1.2 cm. There is diffuse fatty infiltration of liver. There has been a cholecystectomy. There has been a prior gastric bypass procedure. OSSEOUS STRUCTURES: There is no lytic or blastic bone lesion identified. There are mild spinal degenerative changes present. CT/CT chest w IV con IMPRESSION: 1.There are bilateral subpectoral breast implants in place. There is fat stranding surrounding the anterior and inferior poles of the implants, extending to both the inferolateral breast margins, and periareolar regions. There are subcutaneous open wounds along the inferolateral breast margins. There are retroareolar foci of subcutaneous gas. There is no organized focal subcutaneous fluid collection. 2. Subcutaneous fat stranding is present surrounding the entire mid and posterior thorax extending into the upper abdomen. 3. The lungs are clear. There are no effusions or pneumothorax. 4. Fatty infiltration of liver. Cholecystectomy. 5. Post gastric bypass surgery. 6. Peripherally calcified splenic artery aneurysm measuring 1.4 x 1.2 cm Critical Care Time Critical Care Time Critical Care Time: Yes Total Critical Care Time: 75 Attestation: I have personally provided critical care time. Time includes review of lab data, radiology results, discussion with consultants, and monitoring for potential decompensation. Intervention performed as documented. Discharge Plan Discharge Clinical Impression: Complication of breast implant surgery Patient Disposition: [facility] Transfer Details: ED to ED, surgery, Dr. Katz Prescriptions: No Action docusate sodium [Colace] 100 mg capsule 100 mg PO BID Qty: 60 2RF ibuprofen 600 mg tablet 600 mg PO Q6H PRN (Reason: pain) Qty: 30 0RF oxycodone-acetaminophen [Percocet] 5-325 mg tablet 1 - 2 tab PO Q4-6H PRN (Reason: pain) Qty: 30 0RF loratadine 10 mg tablet 10 mg PO DAILY albuterol sulfate 90 mcg/actuation HFA aerosol inhaler 1 puff inhalation Q4-6H PRN (Reason: Wheezing) sertraline 100 mg tablet 150 mg PO QAM hydroxyzine pamoate 25 mg capsule 25 mg PO BID PRN (Reason: Anxiety) lorazepam 0.5 mg tablet 0.5 mg PO DAILY PRN (Reason: anxiety attack) prazosin 1 mg capsule 1 mg PO DAILY trazodone 50 mg tablet 25 mg PO BEDTIME PRN (Reason: insomnia) losartan 25 mg tablet 25 mg PO DAILY chlorthalidone 25 mg tablet 25 mg PO DAILY ketotifen fumarate 0.025 % (0.035 %) drops 1 drp ophthalmic (eye) ONCE PRN (Reason: Itching) fluticasone propionate 50 mcg/actuation spray,suspension 2 spray intranasal DAILY Print Language: Ivorian
--- OUTSIDE RECORDS SUMMARY | 2024-12-06 13:36 | XMS_ITS | Clinical Summary ---
Author Organization [employer] Address [address] [place] [address] Care Team Providers Care Clinical Research Technician Name Role Phone Nancy Willis MD Primary [...] DAY IF NEEDED FOR VERTIGO 30 tablet 023 Active Alcohol Swabs 70 % padsIndications:P rediabetes Use to test blood sugar one time daily 100 each 3 024 Active FREESTYLE LITE test stripIndications: Prediabetes Use to test blood sugar one time daily 50 each 11 024 2024 Active Blood Glucose Monitoring Suppl (FreeStyle [place] Lite) w/Device kitIndications:Pr ediabetes Use to test blood sugar one time daily 1 kit Active TRUEplus Lancets 33G miscIndications:P rediabetes USE TO TEST BLOOD SUGAR ONCE A DAY 100 each 11 024 Active albuterol 108 (90 Base) MCG/ACT inhalerIndication s:Uncomplicated asthma, unspecified asthma severity, unspecified whether persistent INHALE 2 PUFFS BY MOUTH 4 TIMES EVERY DAY NEEDED FOR SHORTNESS OF BREATH 8.5 g 1 Active metFORMIN (Glucophage) 500 MG tabletIndications :Prediabetes TAKE 1 TABLET BY MOUTH WITH BREAKFAST AND EVENING MEALS 60 tablet 3 Active fenofibrate micronized (Lofibra) 134 MG capsuleIndication s:Mixed hyperlipidemia TAKE 1 CAPSULE BY MOUTH EVERY DAY WITH FOOD 90 capsule 3 Active loratadine (Claritin) 10 MG tabletIndications :Dermatitis Take 1 tablet (10 mg) by mouth in the morning. 90 tablet 1 Active chlorthalidone (Hygroton) 25 MG tablet TAKE 1 TABLET BY MOUTH EVERY DAY 90 tablet 1 024 Active cholecalciferol (D3 Super Strength) 50 MCG (1999) capsuleIndication s:Vitamin D deficiency TAKE 1 CAPSULE BY MOUTH EVERY DAY 90 capsule Active Blood Glucose Monitoring Suppl (Accu-Chek Guide) w/Device kit Use to check BS as directed 1 kit Active glucose blood (Accu-Chek Guide Test) test strip Use to check blood sugar once daily as instructed 100 each 12 024 2024 Active Accu-Chek Softclix Lancets lancets Use to check blood sugar once daily as instructed 100 each 12 024 2024 Active losartan (Cozaar) 100 MG tabletIndications :Essential hypertension TAKE 1 TABLET BY MOUTH EVERY DAY IN THE MORNING 90 tablet 3 Active phentermine 15 MG capsuleIndication s:Class 1 obesity due to excess calories with serious comorbidity and body mass index (BMI) of 32.0 to 32.9 in adult Take 1 capsule (15 mg) by mouth before breakfast. 30 capsule 025 2024 Active topiramate (Topamax) 25 MG tabletIndications :Class 1 obesity due to excess calories with serious comorbidity and body mass index (BMI) of 32.0 to 32.9 in adult Take 1 tablet (25 mg) by mouth at bedtime. 30 tablet 1 025 2025 Active phentermine 15 MG capsuleIndication s:Class 1 obesity due to excess calories with serious comorbidity and body mass index (BMI) of 32.0 to 32.9 in adult Take 1 capsule (15 mg) by mouth before breakfast. 30 capsule 025 2024 Discontinued(R eorder (will not trigger notification to Pharmacy)) topiramate (Topamax) 25 MG tabletIndications :Class 1 obesity due to excess calories with serious comorbidity and body mass index (BMI) of 32.0 to 32.9 in adult Take 1 tablet (25 mg) by mouth at bedtime. 30 tablet 1 025 2024 Discontinued(R eorder (will not trigger notification to Pharmacy)) phentermine 15 MG capsuleIndication s:Class 1 obesity due to excess calories with serious comorbidity and body mass index (BMI) of 32.0 to 32.9 in adult Take 1 capsule (15 mg) by mouth before breakfast. 30 capsule 025 2024 Discontinued topiramate (Topamax) 25 MG tabletIndications :Class 1 obesity due to excess calories with serious comorbidity and body mass index (BMI) of 32.0 to 32.9 in adult Take 1 tablet (25 mg) by mouth at bedtime. 30 tablet 1 025 2024 Discontinued Active Problems Problem Noted Date Diagnosed Date Elevated LFTs 12/02/2024 Encounter for preventive care 10/18/2024 Assessment & Plan (10/18/2024 4:16 PM EST): See HPI Class 1 obesity due to exces s calories with serious comorbidity and body mass index (BMI) of 32.0 to 32.9 in adult 10/18/2024 Assessment & Plan (12/02/2024 4:15 PM EDT): Extensive counseling about healthy diet and exercise done today I will continue with phentermine 15 mg plus to topiramate 25 mg Assessment & Plan (10/18/2024 4:16 PM EST): Patient is a status post bariatric surgery, extensive counseling about diet and exercise on today I will start patient on phentermine 15 mg daily with Topamax 25 mg I will follow-up with her in about 6 weeks Leg edema 10/18/2024 Assessment & Plan (10/18/2024 4:15 PM EST): Venous ultrasound ordered today to rule out venous insufficiency Labs ordered today, patient will be contacted with results Dermatitis 04/15/2024 Assessment & Plan (05/03/2024 4:54 [...] 1 week Prediabetes 10/06/2023 Assessment & Plan (10/18/2024 4:16 PM EST): Extensive counseling about healthy diet and exercise on today A1c will be checked with labs Assessment & Plan (05/03/2024 4:53 PM EDT): [...] reports his previous bariatric specialist move to [place] and she needs to be follow here around the area I will refer her to local bariatric specialist Weight gain 12/10/2022 Mixed hyperlipidemia 11/15/2022 Abnormal perimenopausal bleeding 11/04/2022 Essential hypertension 11/04/2022 Assessment & Plan (10/18/2024 4:15 PM EST): Blood pressure has been stable, I advised low-sodium diet, weight reduction and to take medications every day without missing any dose Continue with chlorthalidone 25 mg daily Continue with losartan 100 mg daily Assessment & Plan (05/03/2024 4:53 PM EDT): [...] Encounters Date Type Department Care Team Description 12/06/2024 Orders Only GENERIC EXTERNAL DATA DEPARTMENT Provider, Generic External Data 12/02/2024 11:30 AM EDT Telemedicine [address] [phone] Nancy Willis MD Class 1 obesity due to excess calories with serious comorbidity and body mass index (BMI) of 32.0 to 32.9 in adult (Primary Dx); Elevated LFTs 12/02/2024 Travel 11/10/2024 Telephone [facility] [address] [place] [phone] Nancy Willis MD Medication Question 11/10/2024 Orders Only [facility] [address] [place] [phone] Nancy Willis MD 10/19/[address] [phone] Nancy Willis MD Medication Question 10/18/2024 9:15 AM EST Office Visit [address] [phone] Nancy Willis MD Encounter for preventive care (Primary Dx); Class 1 obesity due to excess calories with serious comorbidity and body mass index (BMI) of 32.0 to 32.9 in adult; Prediabetes; Essential hypertension; Leg edema; Encounter for immunization 10/18/2024 Travel 10/15/2024 11:00 AM EST Office Visit [address] [phone] Marisela Kern MD Cheilitis (Primary Dx); Post-inflammatory hyperpigmentation 10/15/2024 Travel 10/14/2024 Telephone [facility] [address] [place] [phone] Nancy Willis MD insurance 10/13/[address] [phone] Arian Wells [place] Chart Prep 10/06/2024 Patient Outreach [address] [address] Nancy Willis MD Pre-visit Planning (SDOH screening negative and tobacco screening negative) 09/26/[address] [address] Nancy Willis MD Essential hypertension 09/17/2024 Orders Only [address] [phone] Nancy Willis MD from Last 3 Months Immunizations Name Administration [...] 10/18/2024 9:05 AM EST Plan of Treatment Upcoming Encounters Date Type Department Care Team (Late st Contact Info) Description 01/27/2025 11:30 AM EDT Telemedicine [facility] [address] [place] [address] Nancy Willis MD [address] [place] [address] Health Maintenance Due Date Last Done Comments CT Colonography 1970 FIT DNA/Cologuard 1970 FIT 1970 FOBT 1970 Sigmoidoscopy 1970 Zoster Vaccines (1 of 2) 2018 COVID-19 Vaccine ( season) 2024 10/06/2023, 08/29/2022, 07/12/2021, Additional history exists Influenza Vaccine (#1) 2024 , 07/05/2021, 08/27/2019, Additional history exists Pap Smear 07/05/2024 07/05/2021 Alcohol/Substance Use Screening 05/03/2025 05/03/2024 Mammogram 09/17/2025 09/17/2024, 08/08, 09/03/2021, Additional history exists SDOH Screening 10/06/2025 10/06/2024 Depression Screening 10/18/2025 10/18/2024, 10/06/19 Diabetes: Hemoglobin A1C 10/18/2025 025, 05/03/2024, 10/06/2023, Additional history exists Tobacco Screening 10/18/2025 10/18/2024 Cervical Cancer Screening 07/05/2026 HPV/Cotest 07/05/2026 07/05/2021 Colonoscopy 08/13/2026 08/13/2016 Colorectal Cancer Screening 08/13/2026 Lipid Panel 10/18/2029 10/18/2024, 10/10, 12/16/2022, Additional history exists DTaP/Tdap/Td Vaccines (3 - Td or Tdap) 10/18/2034 10/18/2024, 03/19/2013, 03/02/2009 RSV Patients and Patients Aged 60 years or older (1 - 1-dose 75+ series) 2043 Hepatitis B Vaccines Completed 09/03/1999, 04/10/1999, 03/01/1999 Pneumococcal Vaccine: 50+ Years Completed 05/03/2024 HIV Screening Completed 10/18/2024, 09/09, 01/14/2022 Hepatitis C Screening Completed 10/18/2024, 024 HIB Vaccines Aged Out No longer eligi [...] this topic Meningococcal Vaccine Aged Out No [place] chyna eligible based on patient's age to complete this topic RSV under 20 months Aged Out No longe r eligible based on patient's age to complete this topic Rotavirus Vaccines Aged Out No longer eligible based on patient's age to complete this topic Procedures Procedure Name Priority Date/Time Associated Diagnosis Comments BASIC METABOLIC PANEL Routine 12/06/2024 10:21 AM EDT CBC WITH AUTO DIFFERENTIAL Routine 12/06/2024 10:21 AM EDT TSH W/REFLEX TO FT4 Routine 10/18/2024 1 0:28 AM EST Encounter for preventive care VITAMIN D,25-OH,TOTAL,IA Routine 10/18/2024 10:28 AM EST Encounter for preventive care LIPID PANEL, STANDARD Routine 10/18/2024 10:28 AM EST Encounter for preventive care HEPATITIS C AB W/REFL TO HCV RNA, QN, PCR Routine 10/18/2024 10:28 AM EST Encounter for preventive care HIV 1/2 ANTIGEN/ANTIBODY, FOURTH GENERATION W/RFL Routine 10/18/2024 10:28 AM EST Encounter for preventive care HEMOGLOBIN A1C Routine 10/18/2024 10:28 AM EST Encounter for preventive care COMPREHENSIVE METABOLIC PANEL Routine 10/18/2024 10:28 AM EST Encounter for preventive care CBC WITH AUTO DIFFERENTIAL Routine 10/18/2024 10:28 AM EST Encounter for preventive care BI MAMMOGRAM SCREENING TOMOSYNTHESIS BILATERAL Routine 09/17/2024 10:45 AM EST THINPREP IMAGING PAP AND HPV MRNA E6/E7, WITH CT/NG, TRICHOMONAS Routine 07/05/2021 9:12 AM EDT HM COLONOSCOPY Routine 08/13/2016 from Last 3 Months or Most Recently Relevant to Health Maintenance Results * (ABNORMAL) CBC auto differential (12/06/2024 10:21 AM EDT) Only the most recent of2 resultswithin the time period is included. White Blood Count 7.4 4.8 - 10.8 X10*3/uL [facility] Red Blood Count 3.24(L) 4.20 - 5.50 X10*6/uL [facility] Hemoglobin 9.4(L) 12.0 - 16.0 g/dl [facility] Hematocrit 29.0(L) 37.0 - 47.0 % [facility] Mean Corpuscular Volume 89.5 80.0 - 98.0 fL [facility] Mean Corpuscular Hemoglobin 29.0 27.0 - 33.0 pg [facility] Mean Corpuscular HGB Conc 32.4 31.0 - 35.0 g/dl [facility] Red Cell Distribution Width 13.6 11.0 - 16.0 % [facility] Platelet Count 398 160 - 400 X10*3/uL [facility] Mean Platelet Volume 8.6(L) 9.4 - 12.3 fL [facility] Neutrophils Percent Auto 55.0 45 - 73 % [facility] Imm Gran Pct Auto 1.1(H) 0.0 - 0.4 % [facility] Lymphocytes Percent Auto 27.8 20 - 40 % [facility] Monocytes Percent Auto 11.1(H) 2 - 11 % [facility] Eosinophils Percent Auto 4.3(H) 0 - 4 % [facility] Basophils Percent Auto 0.7 0 - 2 % [facility] NRBC Pct Auto 0.0 0.0 - 0.2 /100WBC [facility] Neutrophils Absolute Auto 4.1 2.0 - 8.3 x10*3/uL [facility] Imm Gran Abs Auto 0.08(H) 0.00 - 0.03 X10*3/uL [facility] Lymphocytes Absolute Auto 2.1 1.2 - 4.9 X10*3/uL [facility] Monocytes Absolute Auto 0.8 0.1 - 1.2 X10*3/uL [facility] Eosinophils Absolute Auto 0.3 0.0 - 0.4 X10*3/uL [facility] Basophils Absolute Auto 0.1 0.0 - 0.2 X10*3/uL [facility] NRBC Abs Auto 0.000 0.0 - 0.012 X10*3/uL [facility] 12/06/2024 10:2 1 AM EDT 12/06/2024 10:23 AM EDT us Generic External Data Provider LAB BLOOD ORDERAB LES Final Result [facility] [address] [place] [phone] * (ABNORMAL) Basic Metabolic Panel (12/06/2024 10:21 AM EDT) Sodium 143 135 - 145 mmol/L [facility] Potassium 3.8 3.3 - 5.1 mmol/L [facility] Chloride 110(H) 96 - 108 mmol/L [facility] Carbon Dioxide 24 22 - 29 mmol/L [facility] Anion Gap 13 12 - 20 [facility] Urea Nitrogen (BUN) 17(H) 9 - 16 mg/dL [facility] Creatinine, Serum 0.72 0.5 - 1.4 mg/dL [facility] Creatinine Clr Calc Pharmacy 89.9 [facility] Comment:Provided height and weight: 162.56 cm,81.2 kg.eGFR (calculated from the MDRD study equation) and eCrCl(calculated from the Cockcroft-Gault equation) are based ondifferent parameters and may not yield comparable results.If eCrCl result is absurd, please check patient'sheight/weight. Estimated Glomerular Filt Rate >60 [facility] Comment:Chronic Kidney Disea se: Estimated GFR < 60 mL/min/1.90h4Fgllcm Kidney Disease: Estimated GFR < 15 mL/min/1.73m2 Glucose 98 60 - 115 mg/dL [facility] Calcium 9.1 8.4 - 10.2 mg/dL [facility] 12/06/2024 10:2 1 AM EDT 12/06/2024 10:23 AM EDT us Generic External Data Provider LAB BLOOD ORDERAB LES Final Result [facility] [address] [place] [phone] * Vitamin D, 25-Hydroxy, Total, Immunoassay (10/18/2024 10:28 AM EST) Vitamin D 25-OH Total 42.1 >30 ng/mL [facility] Comment:Health Based Referen ce Values*< 20 ng/mL Ufwdoxafr80-11 ng/mL Insufficient> 30 ng/mL Sufficient*Kath CORTEZ. N Engl J Med. 2007;357:266-280Care must be taken in interpreting Vitamin D results fromdifferent laboratories and methodologies. Published datademonstrated that results from patients undergoinghemodialysis may show a negative bias when tested withvarious automated 25-OH vitamin D assays when compared toLC-MS/MS.When testing samples from patients whose predominant form ofVitamin D is Vitamin D2, such as patients receiving VitaminD2 supplementation, results that are subtherapeutic shouldbe confirmed with another method such as LC-MS/MS. Blood Venous blood specimen / Unknown 10/18/2024 10:28 AM EST 10/18/2024 11:06 AM EST Nancy Bates MD LAB BLOOD ORDERABLES Final Result Performing Organization Address [facility] Co de Phone Number [facility] [address] [place] [phone] * TSH with Reflex to Free T4 (10/18/2024 10:28 AM EST) TSH reflex Free T4 1.29 0.32 - 4.0 uIU/mL [facility] Blood Venous blood specimen / Unknown 10/18/2024 10:28 AM EST 10/18/2024 11:06 AM EST Nancy Bates MD LAB BLOOD ORDERABLES Final Result Performing Organization Address [facility] Phone Number [facility] [address] [place] [phone] * Hepatitis C Antibody with Reflex to HCV, RNA, Quantitative, Real-Time PCR (10/18/2024 10:28 AM EST) Hepatitis C Antibody Nonreactive Nonreactive [facility] Comment:Antibodies to HCV no t detected; does not exclude early acuteHCV infection. Blood Venous blood specimen / Unknown 10/18/2024 10:28 AM EST 10/18/2024 11:06 AM EST Nancy Bates MD LAB BLOOD ORDERABLES Final Result Performing Organization Address [facility] Co pa Phone Number [facility] [address] [place] [phone] * HIV-1/2 Antigen and Antibodies, Fourth Generation, with Reflexes (10/18/2024 10:28 AM EST) HIV AB/AG Nonreactive Nonreactive [facility] Comment:HIV-1 p24 Ag and/or HIV-1/HIV-2 Ab not detected.A test result that is nonreactive does not exclude thepossibility of exposure to or infection with HIV-1 and/orHIV-2. Nonreactive results in this assay for individualswith prior exposure to HIV-1 and/or HIV-2 may be due toantigen and antibody levels that are below the limit ofdetection of this assay.The [employer] HIV Ag/Ab Combo assay result andsupplemental assay results should be interpreted inconjunction with the patient's clinical presentation,history and other laboratory results. If the results areinconsistent with clinical evidence, additional testing issuggested to confirm the result. Blood Venous blood specimen / Unknown 10/18/2024 10:28 AM EST 10/18/2024 11:06 AM EST us Nancy Bates MD LAB BLOOD ORDERABLES Final Result [facility] [address] [place] [phone] * Hemoglobin A1c (10/18/2024 10:28 AM EST) Hemoglobin A1c 5.9 <6.0 % [facility] Comment:Hemoglobin A1C Refer ence Range Adults: 4.8 - 6.0 % Non diabetic: < 6.0 % Goal: < 7.0 %Additional Action Suggested: > 8.0 %Note: Hemoglobin A1c results are invalid for patients with abnormal amounts of HbF. Blood transfusions may impact the HbA1c concentration in the patient sample. Estimated Average Glucose 123 mg/dL [facility] Comment:eAG = Estimated ave rage glucose which is %A1C expressed asaverage glucose, using the formula of the Q2D-UcucdvlCkjibia Glucose study (ADAG), Diabetes Care, Vol.31,#8,Apr. 2007 Blood Venous blood specimen / Unknown 10/18/2024 10:28 AM EST 10/18/2024 11:06 AM EST Nancy Bates MD LAB BLOOD ORDERABLES Final Result Performing Organization Address [facility] Co de Phone Number [facility] [address] [place] [phone] * (ABNORMAL) Lipid Panel, Standard (10/18/2024 10:28 AM EST) Triglycerides 182(H) <150 mg/dL [facility] Comment:Desirable Triglyceri de: less than 150 mg/dLBorderline High Triglyceride 150-199 mg/dLHigh Triglyceride: 200-499 mg/dLVery High Triglyceride: greater than or equal to 5OO mg/dL Cholesterol 172 <200 mg/dL [facility] Comment:Desirable Cholestero l: less than 200 mg/dLBorderline High Cholesterol: 200-239 mg/dLHigh Cholesterol: greater than 239 mg/dL LDL Cholesterol Calculated 87 <100 mg/dL [facility] Comment:Desirable LDL: less than 100 mg/dLNear Optimal/Above Optimal LDL: 110- 129 mg/dLBorderline High LDL: 130-159 mg/dLHigh LDL: 160-189 mg/dLVery High LDL: greater than or equal to 190 mg/dL HDL Cholesterol 49 >40 mg/dL [facility] Comment:Desirable HDL: great er than 40 mg/dL Note: This HDL assay may give artificially low results in patients with liver disease. Blood Venous blood specimen / Unknown 10/18/2024 10:28 AM EST 10/18/2024 11:06 AM EST us Nancy Bates MD LAB BLOOD ORDERABLES Final Result Performing Organization Address [facility]/ZIP Co de Phone Number [facility] [address] [place] [phone] * (ABNORMAL) Comprehensive Metabolic Panel (10/18/2024 10:28 AM EST) Sodium 140 135 - 145 mmol/L [facility] Potassium 4.0 3.3 - 5.1 mmol/L [facility] Chloride 105 96 - 108 mmol/L [facility] Carbon Dioxide 28 22 - 29 mmol/L [facility] Anion Gap 11(L) 12 - 20 [facility] Urea Nitrogen (BUN) 18(H) 9 - 16 mg/dL [facility] Creatinine, Serum 0.80 0.5 - 1.4 mg/dL [facility] Estimated Glomerular Filt Rate >60 [facility] Comment:Chronic Kidney Disea se: Estimated GFR < 60 mL/min/1.50t6Dxtsdi Kidney Disease: Estimated GFR < 15 mL/min/1.73m2 Glucose 99 60 - 115 mg/dL [facility] Calcium 10.1 8.4 - 10.2 mg/dL [facility] Bilirubin, Total 0.4 0.0 - 1.0 mg/dL [facility] Aspartate Amino Transferase 41(H) 5 - 31 U/L [facility] Alanine Aminotransferase 60(H) 0 - 31 U/L [facility] Total Protein 7.8 6.5 - 8.0 g/dL [facility] Albumin Level 4.6 3.5 - 5.0 g/dL [facility] Alkaline Phosphatase 48 39 - 117 U/L [facility] Blood Venous blood specimen / Unknown 10/18/2024 10:28 AM EST 10/18/2024 11:06 AM EST us Nancy Bates MD LAB BLOOD ORDERABLES Final Result [facility] [address] [place] [phone] * BI Mammogram Screening Tomosynthesis Bilateral (09/17/2024 10:45 AM EST) Anatomical Region Laterality Modality Breast Bilateral Mammography 09/17/2024 10:4 5 AM EST Narrative 09/24/2024 4:02 PM EST ? [facility] ? [address] ?[place] [address] ? Mammography Report ? Signed ? Patient: Jamie,Gissel ?MR#: [id number] ?? 30 ? : 1970 ?Acct:[id number] ? Age/Sex: 54 / F ?ADM Date: 09/17/24 ? Loc: HO.MAMMO ? Attending Dr: Nancy Bates MD ? Ordering Physician: Nancy Willis MD ?Results: ?? 2Benign Findings ? Date of Service: 09/17/24 ?Follow Up: 1 Year From Orig ?? inal Mammogram ? Procedure(s): MM tomosynthesis screening BI ?? Accession Number(s): [id number] ? cc: Nancy Willis MD ? EXAMINATION: [...] ??Joyce Schroeder DO ??09/24/2024 03:59 PM EST ? Dictated By: ?Joyce Schroeder DO ? Signed By: ?<Electronically signed by Joyce Schroeder, DO in OV> ? 09/24/24 1559 ? DD/ 1045 ? TD/TT: 09/17/24 1110 ? Head Soft Sugar Operator: ? Procedure Note Chani, Image - 09/24/2024 [place] [facility] [address] [place] [address] Mammography Report Signed Patient: Man Ayala#: [id number] 30 : 1970Acct:[id number] Age/Sex: 54 / FADM Date: 09/17/24 Loc: HO.MAMMO Attending Dr: Nancy Bates MD Ordering Physician: Nancy Willis MDResults: 2Benign Findings Date of Service: 09/17/24Follow Up: 1 Year From Orig inal Mammogram Procedure(s): MM tomosynthesis screening BI Accession Number(s): [id number] cc: Nancy Willis MD EXAMINATION: MM SCREENING [...] Joyce Schroeder DO 09/24/2024 03:59 PM EST RP Dictated By: Joyce Schroeder DO Signed By: <Electronically signed by Joyce Schroeder DO in OV> 09/24/24 1559 DD/ 1045 TD/TT: 09/17/24 1110 Head Soft Sugar Operator: Nancy Bates MD IMG BI PROCEDURES Harish joanna Result - Final * THINPREP TIS PAP AND HPV mRNA E6/E7, CT/NG, TRICH (07/05/2021 9:12 AM EDT) Chlamydia trachomatis RNA, TMA, Urogenital NOT DETECTED NOT DETECTED [facility] Clinical Information: None given [facility] COMMENT SEE COMMENT [facility] Comment: The analytical performance characteristics of this assay, when used to test SurePath(TM) specimens have been determined by [employer]. The modifications have not been cleared or approved by the FDA. This assay has been validated pursuant to the CLIA regulations and is used for clinical purposes. ?? For additional information, please refer to https://education.[employer]/faq/EAB120 (This link is being provided for information/ [...] has been evaluated with computer assisted technology. [facility] [employer]: SEE COMMENT [facility] Comment: KF, CT(ASCP) CT screening location: [address] ??[id number] HPV nRNA E6/E7 Not Detected Not Detected [facility] Comment: Methodology: Log Turner-Mediated Amplification This assay detects E6/E7 viral messenger RNA (mRNA) from 14 high-risk HPV types (16,18,31,33,35,39,45,51,52,56,58,59,66,68). ? The analytical performance characteristics of this assay have been determined by [employer]. The modifications have not been cleared or approved by the FDA. This assay has been validated pursuant to the CLIA regulations and is used for clinical purposes. ?? For additional information, please refer to http://[employer]/faq/MET081l3 (This link if provided for information/ educational purposes only.) Interpretation/Re sult: Negative for intraepithelial lesion or malignancy. [facility] LMP: NONE GIVEN [facility] Neisseria gonorrhoeae RNA, TMA, Urogenital NOT DETECTED NOT DETECTED [facility] Prev. BX: NONE GIVEN [facility] Prev. PAP: NONE GIVEN [facility] SOURCE: None given [facility] Statement Of Adequacy: SEE COMMENT [facility] Comment: Satisfactory for evaluation. Endocervical/transformation zone component present. Age and/or menstrual status not provided Trichomonas vaginalis, QL, TMA, PAP Vial NOT DETECTED NOT DETECTED [facility] Comment: The analytical performance characteristics of this assay have been determined by [employer]. The modifications have not been cleared or approved by the FDA. This assay has been validated pursuant to the CLIA regulations and is used for clinical purposes. ?? For additional information, please refer to http://education.[employer]/ faq/Trichomonastma (This link is being provided for information/ educational purposes only.) ?? 07/05/2021 9:12 AM EDT Chandni Burnett CNM LAB PATHOLOGY ORDERABLES Final Result [facility] [address] * Hm Colonoscopy (08/13/2016) us Historical Provider MD HEALTH MAINTENANCE Final Result from Last 3 Months or Most Recently Relevant to Health Maintenance Insurance [employer] PPO Care Teams Clinical Research Technician Relationship Specialty Start Date End Date Nancy Willis MD [address] [place] [id number] PCP - General Family Medicine 02/24/20
--- OUTSIDE RECORDS SUMMARY | 2024-12-06 13:36 | XMS_ITS | Encounter Summary ---
Author Organization [employer] Address [address] 7[address] [place] [address] Care Team Providers Care Estimator And Drafter Supervisor Name Role Phone Nancy Willis MD Primary Care Provide r Reason for Visit * Reason Onset Date Comments Referral 05/13/2024 Encounter Details Date Type Department Care Team ([facility] st Contact Info) Description 05/13/2024 Telephone [facility] MEDICINE [address] [place], [place] [phone] Nancy Willis MD [address] [place], [place] [phone] Referral Social History Tobacco Use Types Packs/Day [...] documented in this encounter Plan of Treatment Upcoming Encounters Date Type Department Care Team (Late st Contact Info) Description 01/27/2025 11:30 AM EDT Telemedicine [facility] MED[facility]INE [address] [place] [address] Nancy Willis MD [address] [place] [address] documented as of this encounter Visit Diagnoses Not on filedocumented in this encounter Additional Health Concerns Assessment Noted Time PHQ-9 Depression Total Score: 0 10/06/19 24 10:40 AM EST documented as of this encounter Care Teams Estimator And Drafter Supervisor Relationship Specialty Start Date End Date Nancy Willis MD [address] [place] [address] PCP - General Family Medicine 02/24/20 documented as of this encounter
--- OUTSIDE RECORDS SUMMARY | 2024-12-06 13:36 | XMS_ITS | Encounter Summary ---
Author Organization [employer] Address [address] [place] [address] Care Team Providers Care Raw Stock Machine Loader Name Role Phone Nancy Willis MD Primary Care Provide r Reason for Visit * Reason Onset Date Comments Appointment Request 08/19/2024 Encounter Details Date Type Department Care Team ([facility] st Contact Info) Description 08/19/2024 Telephone [facility] MEDICINE [address] [place], [place] [phone] Nancy Willis MD [address] [place], [place] [phone] Appointment Request Social History Tobacco Use Types [...] to getapt. Contact pt to schedule at [phone] documented in this encounter Plan of Treatment Upcoming Encounters Date Type Department Care Team (Late st Contact Info) Description 01/27/2025 11:30 AM EDT Telemedicine [facility] MEDICINE [address] [place] [address] Nancy Willis MD [address] [place] [address] documented as of this encounter Visit Diagnoses Not on filedocumented in this encounter Additional Health Concerns Assessment Noted Time PHQ-9 Depression Total Score: 0 10/06/19 24 10:40 AM EST documented as of this encounter Care Teams Raw Stock Machine Loader Relationship Specialty Start Date End Date Nancy Wilils MD [address] [place] [address] PCP - General Family Medicine 02/24/20 documented as of this encounter
--- OUTSIDE RECORDS SUMMARY | 2024-12-06 13:36 | XMS_ITS | Encounter Summary ---
Author Organization [email or web address] Address [address] [place] [address] Care Team Providers Care Moving Picture Operator Name Role Phone Nancy Willis MD Primary Care Provide r Reason for Visit * Reason Comments Med Refill Encounter Details Date Type Department Care Team ([facility] st Contact Info) Description 01/29/2024 Refill [facility] MEDICINE 230 [place], [place] [phone] Nancy Willis MD [address] [place], [place] [phone] Prediabetes Social History Tobacco Use Types Packs/Day [...] as of this encounter Plan of Treatment Upcoming Encounters Date Type Department Care Team (Late st Contact Info) Description 01/27/2025 11:30 AM EDT Telemedicine [facility] MEDICINE 230 [place] [address] Nancy Willis MD [address] [place] [address] documented as of this encounter Visit Diagnoses Diagnosis Prediabetes Other abnormal glucose documented in this encounter Additional Health Concerns Assessment Noted Time PHQ-9 Depression Total Score: 0 10/06/19 24 10:40 AM EST documented as of this encounter Care Teams Moving Picture Operator Relationship Specialty Start Date End Date Nancy Willis MD 230 [place] [address] PCP - General Family Medicine 02/24/20 documented as of this encounter
--- OUTSIDE RECORDS SUMMARY | 2024-12-06 13:36 | XMS_ITS | Encounter Summary ---
Author Organization [employer] Address [address] [place] [address] Care Team Providers Care Floorhand Name Role Phone Nancy Willis MD Primary Care Provide r Reason for Visit * Reason Comments Med Refill Encounter Details Date Type Department Care Team ([facility] st Contact Info) Description 07/06/2024 Refill [facility] MEDICINE 230 [place] [address] Nancy Willis MD [address] [place], [place] [phone] Prediabetes Social History Tobacco Use Types Packs/Day [...] Info) Description 01/27/2025 11:30 AM EDT Telemedicine [facility] MEDICINE [address] [place], [place] [phone] Nancy Willis MD [address] [place] [address] documented as of this encounter Visit Diagnoses Diagnosis Prediabetes Other abnormal glucose documented in this encounter Additional Health Concerns Assessment Noted Time PHQ-9 Depression Total Score: 0 10/06/19 24 10:40 AM EST documented as of this encounter Care Teams Floorhand Relationship Specialty Start Date End Date Nancy Willis MD [address] [place], [place] [phone] PCP - General Family Medicine 02/24/20 documented as of this encounter
--- OUTSIDE RECORDS SUMMARY | 2024-12-06 13:36 | XMS_ITS | Encounter Summary ---
Author Organization [employer] Address [address] [place] [address] Care Team Providers Care Crystalizer Name Role Phone Nancy Willis MD Primary Care Provide r Reason for Visit * Reason Onset Date Comments Referral 07/20/2024 Encounter Details Date Type Department Care Team ([facility] st Contact Info) Description 07/20/2024 Telephone [facility] MEDICINE [address] [place], [place] [phone] Nancy Willis MD [address] [place], [place] [phone] Referral Social History Tobacco Use Types Packs/Day [...] possibility to be faxed over today. FAX- [phone] documented in this encounter Plan of Treatment Upcoming Encounters Date Type Department Care Team ([facility] st Contact Info) Description 01/27/2025 11:30 AM EDT Telemedicine [facility] MEDICINE [address] [place] [phone] Nancy Willis MD [address] [place] [address] documented as of this encounter Visit Diagnoses Not on filedocumented in this encounter Additional Health Concerns Assessment Noted Time PHQ-9 Depression Total Score: 0 10/06/19 24 10:40 AM EST documented as of this encounter Care Teams Crystalizer Relationship Specialty Start Date End Date Nancy Willis MD [address] [place] [address] PCP - General Family Medicine 02/24/20 documented as of this encounter
--- OUTSIDE RECORDS SUMMARY | 2024-12-06 13:36 | XMS_ITS | Encounter Summary ---
Author Organization [employer] Address [address] [place] [address] Care Team Providers Care Toy Department Manager Name Role Phone Nancy Willis MD Primary Care Provide r Reason for Visit * Reason Onset Date Comments Med Refill 08/19/2024 Encounter Details Date Type Department Care Team ([facility] st Contact Info) Description 08/19/2024 Telephone [facility] MEDICINE [address] [place] [address] Nancy Willis MD [address] [place] [address] Med Refill Social History Tobacco Use Types [...] 100 MG capsule To be sent to: [facility] Mail [facility] - [facility] [address] documented in this encounter Plan of Treatment Upcoming Encounters Date Type Department Care Team (Late st Contact Info) Description 01/27/2025 11:30 AM EDT Telemedicine [facility] MEDICINE [address] [place] [address] Nancy Willis MD [address] [place] [address] documented as of this encounter Visit Diagnoses Not on filedocumented in this encounter Additional Health Concerns Assessment Noted Time PHQ-9 Depression Total Score: 0 10/06/19 24 10:40 AM EST documented as of this encounter Care Teams Toy Department Manager Relationship Specialty Start Date End Date Nancy Willis MD [address] [place] [address] PCP - General Family Medicine 02/24/20 documented as of this encounter
--- OUTSIDE RECORDS SUMMARY | 2024-12-06 13:37 | XMS_ITS | Data Portability ---
Author Organization [employer] Address [address] [place] [phone] Care Team Providers Care Quantitative Analyst Developer Name Role Phone HIM [facility] OTHER [facility] OTHER [phone] Assessment Encounter Date Assessment Date Assessment LastModified by Organization Details LastModified Time 05/17/2024 05/17/2024 I have reviewed and agree with the assessment and plan as documented by the training program assistant. I provided real time medical direction for this encounter and was immediately available to provide additional phone based assistance as needed. History as noted by training program assistant. Pt reporting about 2 months of itchy [...] she needs to be evaluated by a stem dryer maintainer to determine best course of evaluation and treatment. I prescribe hydroxyzine 25mg for the pt to use tid, prn itching. Pt told to call her primary care team to get a referral to a stem dryer maintainer for further evaluation. To primary care team: [...] Assessment and Plan as documented by the Pewter Caster. Patient given the opportunity to ask questions. Our service contacted for an assessment of: rash As per above, patient with rash times 1-2 months. Taking atarax and applying hydrocortison cream. Has upcoming derm appt. Per training program assistant on the scene, VSS, AF. NAD, non-toxic. See uploaded picture. Impression: Rash - broad differential diagnosis Plan: F/u with derm. No infectious etiology is suspected. Will defer on treatment that was prescribed by her marble cutter Allergies: Reviewed and updated to include lisinopril [...] hydroxyzine HCl 25 mg tablet 2023 024 [facility] #[id number], [address] [place], [address], 15:41:06 Patient TargetsNo targets recorded. Patient InstructionsNo instructions recorded. Reason for Referral None Reported. Medical Equipment None Reported. Allergies Allergen ID Allergen Name Allergen Category Reaction Reaction Severity Criticality Documentation Date Start Date Code Code System Note Provider Name and Address Organization Details Recorded Time 0894 lisinopri l medicatio n Not available Not available Not available 07/01/2024 61967 RxNorm Noa Milton MD [address], [place], [address], [facility] [employer] 4 11:37:07 6719 morphine medicatio n Not [...] Available Not Available No t Available [employer] Trevett Lite kit USE TO TEST BLOOD SUGAR [...] % 99 % 162.56 cm 80 /min 13600.3 76 g 17 /min 98.6 [degF] 122 mm[Hg] 82 mm[Hg] Not Available [employer] 4 15:32:00 Date Recorded Body temperature Body weight Oxygen saturation Oxygen saturation in Arterial blood by Pulse oximetry Heart rate Respiratory rate Systolic blood pressure Diastolic blood pressure Provider Name and Address Organization Details Last Updated DateTime 4 98.5 [degF] 82675.3 76 g 98 % 98 % 86 /min 16 /min 154 mm[Hg] 78 mm[Hg] Not Available [employer] 4 11:33:15 Social History None recorded. Functional Status None recorded. Mental Status None recorded. Family History Nothing Reported. Medical History No medical history recorded. Gynecological HistoryNo gynecological history recorded. Obstetrics History GPAL:G 0 P 0 0 0 0 Past Encounters Encounter ID Performer Location Encounter Start Date Encounter Closed Date Diagnosis/Indication Diagnosis SNOMED-CT Code Diagnosis ICD10 Code Diagnosis Note [id number] Gurjit Leblanc MD Main - [address] [address] 05/17/2024 15:31:50 05/17/2024 22:54:42 Pruritic rash 94554335 L28.2 [id number] Noa Milton MD [facility] - [address] [address] 07/01/2024 11:33:07 07/01/2024 22:38:03 Localized eruption of skin 671561830 R21 Health Concerns Section Related Observation LastModified by Organization Detai ls LastModified Time None Recorded Concern Status LastModified by Organization Details LastModified Time None Recorded Advance Directives Directive None Recorded Payers Encounter Date Sequence Insurance Name Policy Number Policy Eddy Covered Member ID Eddy Member ID Guarantor Name 05/17/2024 1 [facility] - DOS ON OR AFTER 2022 - DUAL ELIGIBLE - RETIREMENT OPTIONS AND ONE CARE (MEDICARE REPLACEMENT/ADV ANTAGE - HMO) Gissel Ayala [id number] Gissel Ayala 07/01/2024 1 [facility] - DOS ON OR AFTER 2022 - DUAL ELIGIBLE - RETIREMENT OPTIONS AND ONE CARE (MEDICARE REPLACEMENT/ADV ANTAGE - HMO) Gissel Ayala [id number] Gissel Ayala Notes Date Note Type Note Provider Name and Address Organization Details Recorded Time 05/17/2024 text/html This was a supervised home visit with training program assistant Guanako Holt. HPI: Patient reports one month [...] .................... .................... .................... .................... .................... .................... . Pewter Caster Note From Guanako Holt: [facility] makes PT contact, 54 YO F CC of [facility] obtains vital signs. PT explains on 11 of march was bit by a horse fly on the left ankle. Since then has been experiencing rash like symptoms on both ankles, left hand, and the back. No evidence of bed bugs. PTs house very clean and has a new bed. Pictures taken and [place] to [facility] [place]. PT describes rash as itchy. PT using hydrocortisone prescription strength with no relief. PT also notes new onset swelling of the left ankle, no recent falls or trauma. PT denies sob, n/v, chest pain. PT has no other associated symptoms. [facility] contacts [facility] and explains above mentioned. [facility] sends a message to pt PCP about referral to stem dryer maintainer to have a physical exam. PT also prescribed hydroxyzine to take three times a to hopefully relief some of the itching. PT understands above mentioned. .................... .................... .................... .................... .................... .................... .................... . Disposition: Fulfilled Gurjit Leblanc MD [address] [facility], [place], [address], [employer] 05/17/2024 16:28:51 07/01/2024 text/html HPI: Reports having [...] .................... .................... .................... .................... .................... .................... . Pewter Caster Note From Jcarlos Murry: Pt co rash on back for 1 month. Pt sts her marble cutter put her on hydrocortisone and hydroxyzine with some relief. pt feels the rash is spreading. Pt sts rash is itchy sometimes but not all the time. Pt sts has appt with stem dryer maintainer July 17. Pt denies SOB, NVD, Cp, headache or dizziness. Baseline vitals assessed, WNL, Afebrile. Rash assessment, does not appear to be urticaria in nature. Negative wheeping/drainage or bleeding. [facility] [place] [place] Yoan contacted and advised pt to follow up with with stem dryer maintainer during up coming appt. Pt advised to continue with current treatment plan. Pt education on signs indicating the ER. Pt advised to follow up with PCP. .................... .................... .................... .................... .................... .................... .................... . Disposition: Fulfilled Noa Milton MD [address] [facility], [place], [address], [employer] 07/01/2024 11:37:41 OBGyn Episode No OBEpisode recorded.
--- OUTSIDE RECORDS SUMMARY | 2024-12-06 13:37 | XMS_ITS | Encounter Summary ---
Author Organization [employer] Address [address] [place] [address] Care Team Providers Care Coke Production Heater Name Role Phone Nancy Willis MD Primary Care Provide r Encounter Details Date Type Department Care Team ([facility] st Contact Info) Description 11/10/[address] [facility] MEDICINE [address] [place] [address] Nancy Willis MD [address] [place] [address] Social History Tobacco Use Types Packs/Day Years [...] the past 12 months, has t he [employer], gas, oil or water company threatened to [...] Info) Description 01/27/2025 11:30 AM EDT Telemedicine [facility] MEDICINE [address] [place] [phone] Nancy Willis MD [address] [place] [address] documented as of this encounter Visit Diagnoses Not on filedocumented in this encounter Additional Health Concerns Assessment Noted Time PHQ-9 Depression Total Score: 0 10/06/19 24 10:40 AM EST documented as of this encounter Care Teams Coke Production Heater Relationship Specialty Start Date End Date Nancy Willis MD [address] [place] [address] PCP - General Family Medicine 02/24/20 documented as of this encounter
--- OUTSIDE RECORDS SUMMARY | 2024-12-06 13:37 | XMS_ITS | Encounter Summary ---
Author Organization [employer] Address [address] [facility] 7 [place] [address] Care Team Providers Care Motor Generator Set Operator Name Role Phone Nancy Willis MD Primary Care Provide r Reason for Visit * Reason Comments Med Refill Encounter Details Date Type Department Care Team (Late Contact Info) Description 01/20/[address] [facility] MEDICINE [address] [place] [phone] Name, MD Kevon [address] [place] [phone] Social History Tobacco Use Types Packs/Day Years [...] Encounters Date Type Department Care Team (Late Contact Info) Description 01/27/2025 11:30 AM EDT Telemedicine [facility] MEDICINE [address] [place] [phone] Nancy Willis MD [address] [place] [address] documented as of this encounter Visit Diagnoses Not on filedocumented in this encounter Additional Health Concerns Assessment Noted Time PHQ-9 Depression Total Score: 0 12/11/19 23 9:25 AM EDT documented as of this encounter Care Teams Motor Generator Set Operator Relationship Specialty Start Date End Date Nancy Willis MD [address] [place] [address] PCP - General Family Medicine 02/24/20 documented as of this encounter
--- OUTSIDE RECORDS SUMMARY | 2024-12-06 13:37 | XMS_ITS | Encounter Summary ---
Author Organization [employer] Address [address] [place] [address] Care Team Providers Care Airfreight Operations Agent Name Role Phone Nancy Willis MD Primary Care Provide r Encounter Details Date Type Department Care Team ([facility] [place] st Contact Info) Description 06/18/2023 Orders Only [facility] MEDICINE [address] [place] [address] Provider, MD Nancy Social History Tobacco Use [...] Info) Description 01/27/2025 11:30 AM EDT Telemedicine [facility] MEDICINE [address] [place], [place] [phone] Nancy Willis MD [address] [place], [place] [phone] documented as of this encounter Procedures Procedure Name Priority Date/Time Associated Diagnosis Comments HM COLONOSCOPY Routine 08/13/2016 documented in this encounter Results * Hm Colonoscopy (08/13/2016) us Historical Provider HEALTH MAINTENANCE Final Result documented in this encounter Visit Diagnoses Not on filedocumented in this encounter Additional Health Concerns Assessment Noted Time PHQ-9 Depression Total Score: 0 12/11/19 23 9:25 AM EDT documented as of this encounter Care Teams Airfreight Operations Agent Relationship Specialty Start Date End Date Nancy Willis MD [address] [place] [phone] PCP - General Family Medicine 02/24/20 documented as of this encounter
--- OUTSIDE RECORDS SUMMARY | 2024-12-06 13:37 | XMS_ITS | Encounter Summary ---
Author Organization [employer] Address [address] [facility] 7 [place] [address] Care Team Providers Care Watch Parts Inspector Name Role Phone Nancy Willis MD Primary Care Provide r Reason for Referral * Imaging (Routine) - Authorized Specialty Diagnoses / Procedures Referred By Shayna t Referred To Contact Radiology Diagnoses Class 1 obesity due to excess calories with serious comorbidity and body mass index (BMI) of 32.0 to 32.9 in adult Elevated LFTs Procedures US Abdomen Complete Nancy Willis MD [address] [place] [address] Phone: tel: fax: [address] Phone: tel: fax: Referral ID Status Reason Start Date Expiration Date V isits Requested Visits Authorized [id number] Authorized 12/02/2024 12/02/2025 1 1 Encounter Details Date Type Department Care Team (Late st Contact Info) Description 12/02/2024 11:30 AM EDT Telemedicine [facility] [address] [place], [place] [phone] Nancy Willis MD [address] [place], [place] [phone] Class 1 obesity due to excess calories with serious comorbidity and body mass index (BMI) of 32.0 to 32.9 in adult (Primary Dx); Elevated LFTs Social History Tobacco Use Types Packs/Day Years [...] as of this encounter Progress Notes * Nancy Bates MD - 12/02/2024 11:30 AM EDT SUBJECTIVE: Gissel Ayala is a 54 y.o. year old female who presents for Follow up . Patient reports she now weights 177 pounds, she lost approximately 10 pounds since she started medication, she denies dry mouth, anxiety, she does reports mild palpitations once in a while, but states it does not bothers her at all I reviewed with patient her labs I let her know her triglycerides are and her LFTs are mildly elevated I let her know I will order an abdominal ultrasound to follow-up with this Social History Social History Narrative Not on file Patient Active Problem List Diagnosis Urticaria Straining during bowel movements Seasonal allergies Right lower quadrant abdominal pain Skin lesion Polymenorrhea Obesity Abnormal perimenopausal bleeding Essential hypertension 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 Review of Systems Constitutional: Negative. HENT: Negative. Respiratory: Negative. Cardiovascular: Positive for palpitations. Negative for chest pain and leg swelling. Gastrointestinal: Negative. Follow Up: Follow up for 6 weeks televisits weight monitoring . Current Outpatient Medications on File Prior to Visit Medication Sig Dispense Refill Accu-Chek Softclix Lancets lancets Use to check blood sugar once daily as instructed 100 each 12 albuterol 108 (90 Base) MCG/ACT inhaler INHALE 2 PUFFS BY MOUTH 4 TIMES EVERY DAY NEEDED FOR SHORTNESS OF BREATH 8.5 g 1 Alcohol Swabs 70 % pads Use to test blood sugar one time daily 100 each 3 Blood Glucose Monitoring Suppl (Accu-Chek Guide) w/Device kit Use to check BS as directed 1 kit 0 Blood Glucose Monitoring Suppl (FreeStyle [place] Lite) w/Device kit Use to test blood sugar one time daily 1 kit 0 chlorthalidone (Hygroton) 25 MG tablet TAKE 1 TABLET BY MOUTH EVERY DAY 90 tablet 1 cholecalciferol (D3 Super Strength) 50 MCG (2000 UT) capsule TAKE 1 CAPSULE BY MOUTH EVERY DAY 90 capsule 0 fenofibrate micronized (Lofibra) 134 MG capsule TAKE 1 CAPSULE BY MOUTH EVERY DAY WITH FOOD 90 capsule 3 FREESTYLE LITE test strip Use to test blood sugar one time daily 50 each 11 glucose blood (Accu-Chek Guide Test) test strip Use to check blood sugar once daily as instructed 100 each 12 loratadine (Claritin) 10 MG tablet Take 1 tablet (10 mg) by mouth in the morning. 90 tablet 1 losartan (Cozaar) 100 MG tablet TAKE 1 TABLET BY MOUTH EVERY DAY IN THE MORNING 90 tablet 3 meclizine (Antivert) 25 MG tablet TAKE 1 TABLET BY MOUTH TWICE A DAY IF NEEDED FOR VERTIGO 30 tablet 0 metFORMIN (Glucophage) 500 MG tablet TAKE 1 TABLET BY MOUTH WITH BREAKFAST AND EVENING MEALS 60 tablet 3 TRUEplus Lancets 33G misc USE TO TEST BLOOD SUGAR ONCE A DAY 100 each 11 [DISCONTINUED] phentermine 15 MG capsule Take 1 capsule (15 mg) by mouth before breakfast. 30 capsule 0 [DISCONTINUED] topiramate (Topamax) 25 MG tablet Take 1 tablet (25 mg) by mouth at bedtime. 30 tablet 1 No current facility-administered medications on file prior to visit. Problem List Items Addressed This Visit Class 1 obesity due to excess calories with serious comorbidity and body mass index (BMI) of 32.0 to 32.9 in adult - Primary Extensive counseling about healthy diet and exercise done today I will continue with phentermine 15 mg plus to topiramate 25 mg Relevant Medications phentermine 15 MG capsule topiramate (Topamax) 25 MG tablet Other Relevant Orders US Abdomen Complete Elevated LFTs Relevant Orders US Abdomen Complete documented in this encounter Miscellaneous Notes * Assessment & Plan Note - Nancy Bates MD - 12/02/2024 4:15 PM EDT Associated Problem(s): Class 1 obesity due to excess calories with serious comorbidity and body mass index (BMI) of 32.0 to 32.9 in adult Extensive counseling about healthy diet and exercise done today I will continue with phentermine 15 mg plus to topiramate 25 mg documented in this encounter Plan of Treatment Upcoming Encounters Date Type Department Care Team (Late st Contact Info) Description 01/27/2025 11:30 AM EDT Telemedicine [facility] [address] [place] [phone] Nancy Willis MD [address] [place] [phone] Scheduled Orders Name Type Priority Associated Diagnoses Orde r Schedule US Abdomen Complete Imaging Routine Class 1 obesity due to excess calories with serious comorbidity and body mass index (BMI) of 32.0 to 32.9 in adult Elevated LFTs Expected: 12/02/2024, Expires: 12/02/2025 documented as of this encounter Visit Diagnoses Diagnosis Class 1 obesity due to excess calories with serious comorbidity and body mass index (BMI) of 32.0 to 32.9 in adult- Primary Elevated LFTs Other abnormal blood chemistry documented in this encounter Additional Health Concerns Assessment Noted Time PHQ-9 Depression Total Score: 0 10/06/19 24 10:40 AM EST documented as of this encounter Care Teams Watch Parts Inspector Relationship Specialty Start Date End Date Nancy Willis MD [address] [place] [phone] PCP - General Family Medicine 02/24/20 documented as of this encounter
--- OUTSIDE RECORDS SUMMARY | 2024-12-06 13:37 | XMS_ITS | Encounter Summary ---
Author Organization [employer] Address [address] [facility] 7 [place] [address] Care Team Providers Care Funds Transfer Clerk Name Role Phone Nancy Willis MD Primary Care Provide r Reason for Visit * Reason Comments Med Refill Encounter Details Date Type Department Care Team (Late Contact Info) Description 04/07/2023 Refill [facility] [address] [place] [phone] Name, MD Kevon [address] [place] [phone] Social History Tobacco Use Types Packs/Day Years [...] Info) Description 01/27/2025 11:30 AM EDT Telemedicine [facility] [address] [place] [address] [phone] Nancy Willis MD [address] [place] [address] documented as of this encounter Visit Diagnoses Not on filedocumented in this encounter Additional Health Concerns Assessment Noted Time PHQ-9 Depression Total Score: 0 12/11/19 23 9:25 AM EDT documented as of this encounter Care Teams Funds Transfer Clerk Relationship Specialty Start Date End Date Nancy Willis MD [address] [place] [address] PCP - General Family Medicine 02/24/20 documented as of this encounter
--- OUTSIDE RECORDS SUMMARY | 2024-12-06 13:37 | XMS_ITS | Encounter Summary ---
Author Organization [employer] Address [address] [facility] 7t [place] [address] Care Team Providers Care Manager Construction Name Role Phone Nancy Willis MD Primary Care Provide r Encounter Details Date Type Department Care Team ([facility] Contact Info) Description 04/04/2023 Orders Only [facility] MED & PEDS [address] [place] [address] Anabel Bah LPN Social History Tobacco Use [...] Upcoming Encounters Date Type Department Care Team ([facility] Contact Info) Description 01/27/2025 11:30 AM EDT Telemedicine [facility] [address] [place], [place] [phone] Nancy Willis MD [address] [place], [place] [phone] documented as of this encounter Visit Diagnoses Not on filedocumented in this encounter Additional Health Concerns Assessment Noted Time PHQ-9 Depression Total Score: 0 12/11/19 23 9:25 AM EDT documented as of this encounter Care Teams Manager Construction Relationship Specialty Start Date End Date Nancy Willis MD [address] [place] [address] PCP - General Family Medicine 02/24/20 documented as of this encounter
--- OUTSIDE RECORDS SUMMARY | 2024-12-06 13:37 | XMS_ITS | Clinical Summary ---
Author Organization [facility] ity Address [address] [place] [address] Care Team Providers Care Tier Lift Operator Name Role Phone Unavailable Primary Care Provider Unavailabl e Surgical History Surgery Date Site/Laterality Comments CHOLECYSTECTOMY PROCEDURE: MS CHOLECYSTECTOMY OTHER SURGICAL HISTORY PROCEDURE: REFERRAL TO [...] 1968 DTaP,Tdap,and Td Vaccines (1 - Tdap) 1987 Hepatitis B Vaccines (1 of 3 - [...]
--- OUTSIDE RECORDS SUMMARY | 2024-12-06 13:37 | XMS_ITS | Encounter Summary ---
Author Organization [employer] Address [address] [facility] [address] [place] [address] Care Team Providers Care House Steward/Stewardess Name Role Phone Nancy Willis MD Primary Care Provide r Encounter Details Date Type Department Care Team ([facility] st Contact Info) Description 12/06/2024 Orders Only GENERIC EXTERNAL DATA DEPARTMENT Provider, Generic External Data Social History Tobacco Use Types Packs/Day Years [...] Info) Description 01/27/2025 11:30 AM EDT Telemedicine [facility] [address] [place] [address] Nancy Willis MD [address] [place] [address] documented as of this encounter Procedures Procedure Name Priority Date/Time Associated Diagnosis Comments CBC WITH AUTO DIFFERENTIAL Routine 12/06/2024 10:21 AM EDT BASIC METABOLIC PANEL Routine 12/06/2024 10:21 AM EDT documented in this encounter Results * (ABNORMAL) Basic Metabolic Panel (12/06/2024 10:21 AM EDT) Sodium 143 135 - 145 mmol/L [facility] Potassium 3.8 3.3 - 5.1 mmol/L [facility] Chloride 110(H) 96 - 108 mmol/L [facility] Carbon Dioxide 24 22 - 29 mmol/L [facility] Anion Gap 13 12 - 20 [facility] Urea Nitrogen (BUN) 17(H) 9 - 16 mg/dL [facility] Creatinine, Serum 0.72 0.5 - 1.4 mg/dL [facility] Creatinine Clr Calc Pharmacy 89.9 [facility] Comment:Provided height and weight: 162.56 cm,81.2 kg.eGFR (calculated from the MDRD study equation) and eCrCl(calculated from the Cockcroft-Gault equation) are based ondifferent parameters and may not yield comparable results.If eCrCl result is absurd, please check patient'sheight/weight. Estimated Glomerular Filt Rate >60 [facility] Comment:Chronic Kidney Disea se: Estimated GFR < 60 mL/min/[id number] Kidney Disease: Estimated GFR < 15 mL/min/1.73m2 Glucose 98 60 - 115 mg/dL [facility] Calcium 9.1 8.4 - 10.2 mg/dL [facility] 12/06/2024 10:2 1 AM EDT 12/06/2024 10:23 AM EDT us Generic External Data Provider LAB BLOOD ORDERAB LES Final Result [facility] [address] [place] [phone] * (ABNORMAL) CBC auto differential (12/06/2024 10:21 AM EDT) White Blood Count 7.4 4.8 - 10.8 X10*3/uL [facility] Red Blood Count 3.24(L) 4.20 - 5.50 X10*6/uL [facility] Hemoglobin 9.4(L) 12.0 - 16.0 g/dl [facility] Hematocrit 29.0(L) 37.0 - 47.0 % [facility] Mean Corpuscular Volume 89.5 80.0 - 98.0 fL [facility] Mean Corpuscular Hemoglobin 29.0 27.0 - 33.0 pg [facility] Mean Corpuscular HGB Conc 32.4 31.0 - 35.0 g/dl [facility] Red Cell Distribution Width 13.6 11.0 - 16.0 % [facility] Platelet Count 398 160 - 400 X10*3/uL [facility] Mean Platelet Volume 8.6(L) 9.4 - 12.3 fL [facility] Neutrophils Percent Auto 55.0 45 - 73 % [facility] Imm Gran Pct Auto 1.1(H) 0.0 - 0.4 % [facility] Lymphocytes Percent Auto 27.8 20 - 40 % [facility] Monocytes Percent Auto 11.1(H) 2 - 11 % [facility] Eosinophils Percent Auto 4.3(H) 0 - 4 % [facility] Basophils Percent Auto 0.7 0 - 2 % [facility] NRBC Pct Auto 0.0 0.0 - 0.2 /100WBC [facility] Neutrophils Absolute Auto 4.1 2.0 - 8.3 x10*3/uL [facility] Imm Gran Abs Auto 0.08(H) 0.00 - 0.03 X10*3/uL [facility] Lymphocytes Absolute Auto 2.1 1.2 - 4.9 X10*3/uL [facility] Monocytes Absolute Auto 0.8 0.1 - 1.2 X10*3/uL [facility] Eosinophils Absolute Auto 0.3 0.0 - 0.4 X10*3/uL [facility] Basophils Absolute Auto 0.1 0.0 - 0.2 X10*3/uL [facility] NRBC Abs Auto 0.000 0.0 - 0.012 X10*3/uL [facility] 12/06/2024 10:2 1 AM EDT 12/06/2024 10:23 AM EDT us Generic External Data Provider LAB BLOOD ORDERAB LES Final Result [facility] [address] [place] [phone] documented in this encounter Visit Diagnoses Not on filedocumented in this encounter Additional Health Concerns Assessment Noted Time PHQ-9 Depression Total Score: 0 10/06/19 24 10:40 AM EST documented as of this encounter Care Teams House Steward/Stewardess Relationship Specialty Start Date End Date Nancy Willis MD [address] [place] [address] PCP - General Family Medicine 02/24/20 documented as of this encounter
--- OUTSIDE RECORDS SUMMARY | 2024-12-06 13:37 | XMS_ITS | Encounter Summary ---
Author Organization [employer] Address [address] [facility] [address] [place] [address] Care Team Providers Care Community Health Counselor Name Role Phone Nancy Willis MD Primary Care Provide r Encounter Details Date Type Department Care Team (Latest Contact Info) Description 12/02/2024 Travel Social History Tobacco Use Types Packs/Day [...] Info) Description 01/27/2025 11:[address] [facility] [address] [place] [address] Nancy Willis MD [address] [place] [address] documented as of this encounter Visit Diagnoses Not on filedocumented in this encounter Additional Health Concerns Assessment Noted Time PHQ-9 Depression Total Score: 0 10/06/19 24 10:40 AM EST documented as of this encounter Care Teams Community Health Counselor Relationship Specialty Start Date End Date Nancy Willis MD [address] [place] [address] PCP - General Family Medicine 02/24/20 documented as of this encounter
[2024-12-06] MEDS: Piperacillin Sodium/Tazobactam 3.375 GM in 0.9 % Sodium Chloride 50 ML IV (14:00)
[2024-12-06] MEDS: 0.9 % Sodium Chloride 1,000 ML 999 ML IVCONT (14:00)
[2024-12-06] MEDS: iohexoL 350 MG/ML 100 ML INFUS..BTL 65 ML IV (14:42)
[2024-12-06] MEDS: vancomycin/NS 2,000 MG/500 ML PLAST..BAG 250 MG IV (14:57)
[2024-12-06 14:58] VITALS: BP 121/65; PULSE 106; RESP 18; O2SAT 96
[2024-12-06 14:59] LABS: Lactic Acid 1.2 mmol/L (0.5-2.0)
--- NOTE | 2024-12-06 17:26 | PC.NURSE ---
20g IV access established to right AC at 13:52. Wound cultures obtained from bilateral breast tissue. See photos in EMR taken by provider with consent. Awaiting transfer to [facility] for advanced/further care.
[2024-12-06 17:45] VITALS: BP 148/78; PULSE 107; RESP 18; O2SAT 99
--- NOTE | 2024-12-06 17:49 | PC.NURSE ---
EMS at bedside, transferring to [facility] ED.
[2024-12-06 18:15] VITALS: BP 148/78; PULSE 107; RESP 18; TEMP 36.7; O2SAT 99
== END 2024-12-06 18:15 | disposition short-term general hospital (02) ==
PROVIDERS: Emergency Provider Emergency Medicine; PCP Internal Medicine
DX: K66.0 Peritoneal adhesions (postprocedural) (postinfection) (principal); N64.59 Other signs and symptoms in breast; N64.4 Mastodynia; I72.8 Aneurysm of other specified arteries; M79.89 Other specified soft tissue disorders; R11.0 Nausea; T85.79XA Infection and inflammatory reaction due to other internal prosthetic devices, implants and grafts, initial encounter; Y83.4 Other reconstructive surgery as the cause of abnormal reaction of the patient, or of later complication, without mention of misadventure at the time of the procedure; Y92.9 Unspecified place or not applicable; Z98.84 Bariatric surgery status; Z79.899 Other long term (current) drug therapy
CPT/HCPCS: 36415; 71260; 80048; 83605; 85025; 87040; 87070; 87077; 87186; 87205; 96361; 96365; 96366; 96375; 99285; J2543; J3370; Q9967

== ENCOUNTER → 2024-12-06 12:14 | Outpatient (BNV) | payer MEDICARE, SELFPAY | PROVIDERS: Emergency Provider Emergency Medicine; PCP Internal Medicine; Visit Provider Radiology Diagnostic Radiology | DX: I72.8 Aneurysm of other specified arteries (principal); K76.0 Fatty (change of) liver, not elsewhere classified | CPT/HCPCS: 71260 ==

== ENCOUNTER 2025-02-07 07:51 | Outpatient (REF) | payer MEDICARE, SELFPAY ==
--- OUTSIDE RECORDS SUMMARY | 2025-02-07 07:53 | XMS_ITS | Encounter Summary ---
Author Organization [employer] Address [address] [facility] [address] [facility] [address] [place] [address] Care Team Providers Care Engine Hostler Name Role Phone Nancy Willis MD Primary Care Provide r Reason for Visit * Reason Comments Med Refill Encounter Details Date Type Department Care Team ([facility] st Contact Info) Description 01/29/2024 Refill [facility] [address] [place], [place] [phone] Nancy Willis MD [address] [place], [place] [phone] Prediabetes Social History Tobacco Use Types Packs/Day [...] your housing situation today? I have wu contreras 07/07/[address] you li [...] Care Team (Late st Contact Info) Description 02/18/2025 1:00 PM EDT Office Visit [facility] [address] [place] [phone] Marisela Kern MD [address] [place] [address] 05/02/2025 11:15 AM EDT Office Visit [facility] [address] [place] [phone] Nancy Willis MD [address] [place], [place] [phone] documented as of this encounter Visit Diagnoses Diagnosis Prediabetes Other abnormal glucose documented in this encounter Additional Health Concerns Assessment Noted Time PHQ-9 Depression Total Score: 0 10/06/19 24 10:40 AM EST documented as of this encounter Care Teams Engine Hostler Relationship Specialty Start Date End Date Nancy Willis MD [address] [place] [phone] PCP - General Family Medicine 02/24/20 documented as of this encounter
[2025-02-07 08:06] LABS: MANUAL DIFF FLAG NO
[2025-02-07 08:15] LABS: Basophils Absolute Auto 0.1 X10*3/uL (0.0-0.2); Eosinophils Absolute Auto 0.2 X10*3/uL (0.0-0.4); Eosinophils Percent Auto 1.9 % (0-4); Hematocrit 41.8 % (37.0-47.0); Hemoglobin 13.3 g/dl (12.0-16.0); Imm Gran Abs Auto 0.02 X10*3/uL (0.00-0.03); Imm Gran Pct Auto 0.3 % (0.0-0.4); Lymphocytes Absolute Auto 3.8 X10*3/uL (1.2-4.9); Lymphocytes Percent Auto 49.6 % (20-40); Mean Corpuscular HGB Conc 31.8 g/dl (31.0-35.0); Mean Corpuscular Hemoglobin 27.5 pg (27.0-33.0); Mean Corpuscular Volume 86.5 fL (80.0-98.0); Mean Platelet Volume 10.2 fL (9.4-12.3); Monocytes Absolute Auto 0.6 X10*3/uL (0.1-1.2); Monocytes Percent Auto 7.1 % (2-11); Neutrophils Absolute Auto 3.1 x10*3/uL (2.0-8.3); Neutrophils Percent Auto 40.1 % (45-73); Platelet Count 249 X10*3/uL (160-400); Red Blood Count 4.83 X10*6/uL (4.20-5.50); Red Cell Distribution Width 13.6 % (11.0-16.0); White Blood Count 7.7 X10*3/uL (4.8-10.8)
[2025-02-07 08:45] LABS: Alanine Aminotransferase 27 U/L (0-31); Albumin Level 4.4 g/dL (3.5-5.0); Alkaline Phosphatase 55 U/L (39-117); Anion Gap 13 (12-20); Aspartate Amino Transferase 22 U/L (5-31); Bilirubin Total 0.4 mg/dL (0.0-1.0); Blood Urea Nitrogen 18 mg/dL (9-16); Carbon Dioxide 29 mmol/L (22-29); Chloride 106 mmol/L (96-108); Estimated Glomerular Filt Rate > 60; Glucose Random 97 mg/dL (60-115); Magnesium 1.8 mg/dL (1.6-2.6); Potassium 3.9 mmol/L (3.3-5.1); Sodium 144 mmol/L (135-145); Total Protein 7.1 g/dL (6.5-8.0)
[2025-02-07 09:16] LABS: Folate 12.6 ng/mL (> or = 4.0); Vitamin B12 413 pg/mL (200-900)
== END 2025-02-07 07:52 | disposition home or self-care (01) ==
LOC: HO.LAB 07:51
PROVIDERS: PCP Internal Medicine; Visit Provider Internal Medicine
DX: R25.2 Cramp and spasm (principal)
CPT/HCPCS: 36415; 80053; 82607; 82746; 83735; 85025